=== PATIENT | male | born 1965 | race Caucasian/White ===

== ENCOUNTER 2019-03-03 22:38 | Inpatient (IN) | payer MEDICARE, MEDICAID ==
[~2019-03-03] VITALS: Ht 170.2 cm; Wt 79.0 kg
[~2019-03-03 22:38] MED LIST: FOLI1 PO; MIRT30 PO; MULT-1238; OLAN10TA6 PO; PARO20TA24 PO; THIA100T72 PO
[2019-03-03] MEDS ORDERED: HYDR-4061 PO (23:11)
[2019-03-03] MEDS ORDERED: TRIH2TAB3 PO (23:11)
[2019-03-03] MEDS ORDERED: QUET300T2 PO (23:11)
[2019-03-03] MEDS ORDERED: HALO10 PO ×2 (23:11)
[2019-03-03] MEDS ORDERED: HYDR25TA PO (23:11)
[2019-03-03 23:14] LABS: BASOPHILS % (AUTO) 0.5 % (0.0-2.0); EOSINOPHILS % (AUTO) 0.3 % (1.0-6.0); HEMATOCRIT 46.8 % (41-53); LYMPHOCYTES # (AUTO) 1.8 K/uL (1.0-4.8); MEAN CORPUSCULAR HGB CONC 34.2 G/dL (31.0-37.0)
[2019-03-03] MEDS ORDERED: IBUPROFEN 800 MG TABLET ONE (23:16)
[2019-03-03 23:17] LABS: MEAN CORPUSCULAR HEMOGLOBIN 31.1 pg (26.0-34.0); MEAN CORPUSCULAR VOLUME 91 fL (80-100); MONOCYTES # (AUTO) 1.1 K/uL (0.1-1.0); MONOCYTES % (AUTO) 6.9 % (2.0-9.0); NEUTROPHILS # (AUTO) 13.4 K/uL (1.8-7.7); NEUTROPHILS % (AUTO) 81.3 % (40.0-70.0); PLATELET COUNT (AUTO) 384 K/uL (150-450); RED BLOOD CELL COUNT(AUTO) 5.14 MIL/uL (4.50-5.90); RED CELL DISTRIBUTION WIDTH 14.9 % (11.5-14.5)
[2019-03-03 23:26] LABS: AMPHET/METH SCREEN,URINE NEGATIVE (NEGATIVE); BARBITURATE SCREEN, URINE NEGATIVE (NEGATIVE); BENZODIAZEPINES SCREEN,URINE NEGATIVE (NEGATIVE); CANNABINOID SCREEN,URINE NEGATIVE (NEGATIVE); COCAINE SCREEN,URINE NEGATIVE (NEGATIVE); METHADONE SCREEN, URINE NEGATIVE (NEGATIVE); OPIATE SCREEN,URINE POSITIVE (NEGATIVE)
[2019-03-03 23:31] LABS: ANION GAP 18 mmol/L (8-16); CARBON DIOXIDE 23 mmol/L (22-29); CHLORIDE 102 mmol/L (98-107); CREATININE 1.01 mg/dL (0.60-1.30); GLOMERULAR FILTR. RATE CALC > 60 mL/min (>60); GLUCOSE,RANDOM 106 mg/dL (70-110); POTASSIUM 3.5 mmol/L (3.5-5.1); SODIUM SERUM 143 mmol/L (136-145); UREA NITROGEN, BLOOD 14 mg/dL (7-18)
[2019-03-03 23:35] LABS: ALANINE AMINOTRANSFERASE 43 U/L (12-78); ALBUMIN 4.3 g/dL (3.4-5.0); ALKALINE PHOSPHATASE 121 U/L (46-116); ASPARTATE AMINOTRANSFERASE 153 U/L (15-37); BILIRUBIN,TOTAL 0.3 mg/dL (0.1-1.0); TOTAL PROTEIN, SERUM 7.6 g/dL (6.4-8.2)
[2019-03-03 23:37] LABS: PHENCYCLIDINE SCREEN,URINE NEGATIVE (NEGATIVE)
[2019-03-03 23:40] LABS: ACETAMINOPHEN < 2 mcg/mL (10-30)
[2019-03-03 23:44] LABS: SALICYLATE 6.4 mg/dL (2.8-20.0)
[2019-03-04] VITALS (8 sets, daily range): BP systolic 122–165; BP diastolic 65–87
[2019-03-04] MEDS ORDERED: SODIUM CHLORIDE 0.9% 1,000 ML IV ONE (02:15)
[2019-03-04] MEDS: LORazepam 2 MG TABLET PO PRN ×2 (05:32→11:05)
[2019-03-04] MEDS ORDERED: PNEUMOCOCCAL VACCINE POLYVALENT 0.5 ML VIAL [PPSV23] IM ONE (11:00)
[2019-03-04] MEDS ORDERED: LORazepam 2 MG TABLET PO PRN (12:15)
[2019-03-04] MEDS ORDERED: ALBUTEROL SULFATE HFA 90 MCG/PUFF 8 GM INHALER IH PRN (14:45)
[2019-03-04] MEDS: OLANZapine 5 MG TABLET PO SCH (16:49)
[2019-03-04] MEDS: ZOLPIDEM TARTRATE 10 MG TABLET PO PRN (21:41)
[2019-03-05 03:09] VITALS: BP 152/78
[2019-03-05] MEDS ORDERED: LORazepam 2 MG TABLET PO PRN (07:00)
[2019-03-05 07:13] VITALS: BP 155/89
[2019-03-05] MEDS: LORazepam 2 MG TABLET PO PRN (07:17)
[2019-03-05] MEDS: OLANZapine 5 MG TABLET PO SCH ×2 (08:33→16:40)
[2019-03-05] MEDS: PARoxetine HCL 20 MG TABLET PO SCH (08:33)
[2019-03-05] MEDS: HYDROCHLOROTHIAZIDE 25 MG TABLET PO SCH (08:33)
[2019-03-05] MEDS: LORazepam 2 MG TABLET PO SCH ×4 (08:33→20:28)
[2019-03-05 08:40] LABS: CHOL/HDL RATIO 2.6 (4.2-7.3); FREE T4 (FREE THYROXINE) 0.96 ng/dL (0.76-1.46); MAGNESIUM 1.9 mg/dL (1.80-2.40); THYROID STIMULATING HORMONE 1.48 uIU/mL (0.36-3.74)
[2019-03-05 11:00] VITALS: BP_SYST 121; BP_SYST 128; BP_DIAS 72
[2019-03-05] MEDS: AmLODIPine BESYLATE 2.5 MG TABLET PO SCH (11:49)
[2019-03-05 15:00] VITALS: BP 158/87
[2019-03-05 16:44] VITALS: BP 138/69
[2019-03-05] MEDS ORDERED: LACTULOSE 20 GM/30 ML SOLUTION UDCUP PO PRN (19:00)
[2019-03-05] MEDS: BISACODYL 5 MG EC TABLET PO PRN (21:29)
[2019-03-06] VITALS (7 sets, daily range): BP systolic 110–155; BP diastolic 74–94
[2019-03-06] MEDS: LORazepam 2 MG TABLET PO PRN (06:13)
[2019-03-06] MEDS: HYDROCHLOROTHIAZIDE 25 MG TABLET PO SCH (08:55)
[2019-03-06] MEDS: LORazepam 2 MG TABLET PO SCH ×4 (08:55→20:27)
[2019-03-06] MEDS: DOCUSATE SODIUM 250 MG CAPSULE PO SCH ×2 (08:55→16:17)
[2019-03-06] MEDS: PARoxetine HCL 20 MG TABLET PO SCH (08:55)
[2019-03-06] MEDS: OLANZapine 5 MG TABLET PO SCH ×2 (08:55→16:17)
[2019-03-06] MEDS: AmLODIPine BESYLATE 2.5 MG TABLET PO SCH (08:56)
[2019-03-06] MEDS: HALOPERIDOL 5 MG TABLET PO PRN (18:13)
[2019-03-07] VITALS (7 sets, daily range): BP systolic 125–166; BP diastolic 76–96
[2019-03-07] MEDS: ZOLPIDEM TARTRATE 10 MG TABLET PO PRN ×2 (00:23→21:57)
[2019-03-07] MEDS: LORazepam 2 MG TABLET PO PRN ×3 (03:04→13:47)
[2019-03-07] MEDS ORDERED: LORazepam 1 MG TABLET PO PRN (07:00)
[2019-03-07] MEDS: DOCUSATE SODIUM 250 MG CAPSULE PO SCH ×2 (08:14→16:20)
[2019-03-07] MEDS: OLANZapine 5 MG TABLET PO SCH ×2 (08:14→16:20)
[2019-03-07] MEDS: LORazepam 1 MG TABLET PO SCH ×5 (08:14→20:38)
[2019-03-07] MEDS: AmLODIPine BESYLATE 2.5 MG TABLET PO SCH (08:14)
[2019-03-07] MEDS: HYDROCHLOROTHIAZIDE 25 MG TABLET PO SCH (08:14)
[2019-03-07] MEDS: PARoxetine HCL 20 MG TABLET PO SCH (08:14)
[2019-03-07 08:23] LABS: BASOPHILS % (AUTO) 1.4 % (0.0-2.0); EOSINOPHILS % (AUTO) 3.4 % (1.0-6.0); HEMATOCRIT 40.8 % (41-53); HEMOGLOBIN 14.2 g/dL (13.5-17.5); LYMPHOCYTES # (AUTO) 1.2 K/uL (1.0-4.8); LYMPHOCYTES % (AUTO) 22.9 % (22.0-44.0); MEAN CORPUSCULAR HEMOGLOBIN 31.7 pg (26.0-34.0); MEAN CORPUSCULAR HGB CONC 34.9 G/dL (31.0-37.0); MEAN CORPUSCULAR VOLUME 91 fL (80-100); MONOCYTES # (AUTO) 0.3 K/uL (0.1-1.0); MONOCYTES % (AUTO) 5.9 % (2.0-9.0); NEUTROPHILS # (AUTO) 3.6 K/uL (1.8-7.7); NEUTROPHILS % (AUTO) 66.4 % (40.0-70.0); PLATELET COUNT (AUTO) 294 K/uL (150-450); RED CELL DISTRIBUTION WIDTH 14.5 % (11.5-14.5)
[2019-03-07 08:46] LABS: ANION GAP 10 mmol/L (8-16); CALCIUM, TOTAL 9.1 mg/dL (8.8-10.5); CARBON DIOXIDE 28 mmol/L (22-29); CHLORIDE 102 mmol/L (98-107); CREATININE 0.78 mg/dL (0.60-1.30); GLOMERULAR FILTR. RATE CALC > 60 mL/min (>60); GLUCOSE,RANDOM 113 mg/dL (70-110); POTASSIUM 3.2 mmol/L (3.5-5.1); SODIUM SERUM 140 mmol/L (136-145); UREA NITROGEN, BLOOD 11 mg/dL (7-18)
[2019-03-07] MEDS: POTASSIUM CHLORIDE 20 MEQ ER TABLET PO SCH (11:27)
[2019-03-07] MEDS: HALOPERIDOL 5 MG TABLET PO PRN (12:19)
[2019-03-07] MEDS: CloNIDine HCL 0.1 MG TABLET PO PRN (16:20)
[2019-03-08] VITALS (7 sets, daily range): BP systolic 125–165; BP diastolic 75–93
[2019-03-08] MEDS: BISACODYL 5 MG EC TABLET PO PRN (00:16)
[2019-03-08] MEDS: HALOPERIDOL 5 MG TABLET PO PRN ×2 (01:14→17:16)
[2019-03-08] MEDS: PARoxetine HCL 20 MG TABLET PO SCH (08:19)
[2019-03-08] MEDS: DOCUSATE SODIUM 250 MG CAPSULE PO SCH ×2 (08:19→17:16)
[2019-03-08] MEDS: OLANZapine 5 MG TABLET PO SCH ×2 (08:19→17:19)
[2019-03-08] MEDS: POTASSIUM CHLORIDE 20 MEQ ER TABLET PO SCH (08:19)
[2019-03-08] MEDS: LORazepam 1 MG TABLET PO PRN ×3 (08:19→18:21)
[2019-03-08] MEDS: AmLODIPine BESYLATE 2.5 MG TABLET PO SCH (08:20)
[2019-03-08 08:57] LABS: ANION GAP 11 mmol/L (8-16); CARBON DIOXIDE 27 mmol/L (22-29); CHLORIDE 102 mmol/L (98-107); CREATININE 0.73 mg/dL (0.60-1.30); GLOMERULAR FILTR. RATE CALC > 60 mL/min (>60); GLUCOSE,RANDOM 110 mg/dL (70-110); POTASSIUM 3.3 mmol/L (3.5-5.1); SODIUM SERUM 140 mmol/L (136-145); UREA NITROGEN, BLOOD 10 mg/dL (7-18)
[2019-03-08] MEDS: HYDROCHLOROTHIAZIDE 25 MG TABLET PO SCH (09:20)
[2019-03-08] MEDS: CloNIDine HCL 0.1 MG TABLET PO PRN (17:39)
[2019-03-09] MEDS: ZOLPIDEM TARTRATE 10 MG TABLET PO PRN ×2 (00:12→20:25)
[2019-03-09 00:14] VITALS: BP 133/89
[2019-03-09] MEDS: LORazepam 1 MG TABLET PO PRN (06:41)
[2019-03-09 07:55] LABS: ANION GAP 10 mmol/L (8-16); CALCIUM, TOTAL 8.9 mg/dL (8.8-10.5); CARBON DIOXIDE 28 mmol/L (22-29); CHLORIDE 102 mmol/L (98-107); CREATININE 0.79 mg/dL (0.60-1.30); GLOMERULAR FILTR. RATE CALC > 60 mL/min (>60); GLUCOSE,RANDOM 104 mg/dL (70-110); POTASSIUM 3.7 mmol/L (3.5-5.1); SODIUM SERUM 140 mmol/L (136-145); UREA NITROGEN, BLOOD 15 mg/dL (7-18)
[2019-03-09 08:00] VITALS: BP 157/84
[2019-03-09] MEDS ORDERED: POTASSIUM CHLORIDE 20 MEQ ER TABLET PO ONE (08:00)
[2019-03-09] MEDS: PARoxetine HCL 20 MG TABLET PO SCH (08:05)
[2019-03-09] MEDS: HYDROCHLOROTHIAZIDE 25 MG TABLET PO SCH (08:05)
[2019-03-09] MEDS: HALOPERIDOL 5 MG TABLET PO PRN ×2 (08:05→12:20)
[2019-03-09] MEDS: OLANZapine 5 MG TABLET PO SCH ×2 (08:06→16:21)
[2019-03-09] MEDS: DOCUSATE SODIUM 250 MG CAPSULE PO SCH (08:06)
[2019-03-09] MEDS: AmLODIPine BESYLATE 2.5 MG TABLET PO SCH (08:06)
[2019-03-09] MEDS: POTASSIUM CHLORIDE 20 MEQ ER TABLET PO SCH (08:08)
[2019-03-09] MEDS: PROPRANOLOL HCL 10 MG TABLET PO SCH ×2 (09:15→16:21)
[2019-03-09] MEDS ORDERED: PETROLATUM,WHITE 28 GM JELLY TP PRN (16:00)
[2019-03-09] MEDS ORDERED: ACETAMINOPHEN 325 MG TABLET PO PRN (16:00)
[2019-03-09] MEDS ORDERED: LOPERAMIDE HCL 2 MG CAPSULE PO PRN (16:00)
[2019-03-09] MEDS ORDERED: ONDANSETRON HCL 4 MG TABLET PO PRN (16:00)
[2019-03-09] MEDS ORDERED: MAG HYDROX/AL HYDROX/SIMETH ES 30 ML SUSPENSION UDCUP PO PRN (16:00)
[2019-03-09] MEDS ORDERED: BACITRACIN 28.4 GM OINTMENT TP PRN (16:00)
[2019-03-09] MEDS ORDERED: MAGNESIUM HYDROXIDE SUSPENSION 30 ML UDCUP PO PRN (16:00)
[2019-03-09] MEDS ORDERED: CloNIDine HCL 0.1 MG TABLET PO PRN (16:00)
[2019-03-09] MEDS ORDERED: ALBUTEROL SULFATE HFA 90 MCG/PUFF 8 GM INHALER IH PRN (16:00)
[2019-03-09] MEDS ORDERED: BENZOCAINE/MENTHOL LOZENGE MM PRN (16:00)
[2019-03-09 16:52] VITALS: BP 125/84
[2019-03-10] MEDS: HALOPERIDOL 5 MG TABLET PO PRN (00:03)
[2019-03-10] MEDS: IBUPROFEN 600 MG TABLET PO PRN (02:47)
[2019-03-10 02:52] VITALS: BP 181/104
[2019-03-10 04:00] VITALS: BP 140/86
[2019-03-10 08:12] VITALS: BP 128/90
[2019-03-10 08:43] LABS: ANION GAP 13 mmol/L (8-16); CALCIUM, TOTAL 9.4 mg/dL (8.8-10.5); CARBON DIOXIDE 27 mmol/L (22-29); CHLORIDE 100 mmol/L (98-107); CREATININE 0.93 mg/dL (0.60-1.30); GLOMERULAR FILTR. RATE CALC > 60 mL/min (>60); GLUCOSE,RANDOM 98 mg/dL (70-110); POTASSIUM 4.2 mmol/L (3.5-5.1); SODIUM SERUM 140 mmol/L (136-145); UREA NITROGEN, BLOOD 19 mg/dL (7-18)
[2019-03-10] MEDS: PROPRANOLOL HCL 10 MG TABLET PO SCH ×2 (08:47→16:15)
[2019-03-10] MEDS: OMEPRAZOLE 20 MG CAPSULE PO SCH (08:47)
[2019-03-10] MEDS: AmLODIPine BESYLATE 5 MG TABLET PO SCH (08:47)
[2019-03-10] MEDS: DOCUSATE SODIUM 100 MG CAPSULE PO SCH (08:47)
[2019-03-10] MEDS: OLANZapine 5 MG TABLET PO SCH ×2 (08:47→16:15)
[2019-03-10] MEDS: HYDROCHLOROTHIAZIDE 25 MG TABLET PO SCH (08:48)
[2019-03-10] MEDS: PARoxetine HCL 20 MG TABLET PO SCH (08:48)
[2019-03-10] MEDS: LORazepam 2 MG TABLET PO PRN (12:36)
[2019-03-10 17:10] VITALS: BP 130/86
[2019-03-10] MEDS: ZOLPIDEM TARTRATE 10 MG TABLET PO PRN (20:41)
[2019-03-11] MEDS: LORazepam 2 MG TABLET PO PRN ×3 (00:03→16:41)
[2019-03-11] MEDS: HALOPERIDOL 5 MG TABLET PO PRN (00:03)
[2019-03-11 00:15] VITALS: BP 144/88
[2019-03-11] MEDS: OLANZapine 5 MG TABLET PO SCH ×2 (08:32→16:14)
[2019-03-11] MEDS: HYDROCHLOROTHIAZIDE 25 MG TABLET PO SCH (08:32)
[2019-03-11] MEDS: OMEPRAZOLE 20 MG CAPSULE PO SCH (08:32)
[2019-03-11] MEDS: PARoxetine HCL 20 MG TABLET PO SCH (08:33)
[2019-03-11] MEDS: DOCUSATE SODIUM 100 MG CAPSULE PO SCH (08:33)
[2019-03-11] MEDS: AmLODIPine BESYLATE 5 MG TABLET PO SCH (09:07)
[2019-03-11] MEDS: PROPRANOLOL HCL 10 MG TABLET PO SCH ×2 (09:07→16:14)
[2019-03-11 09:30] VITALS: BP 140/93
[2019-03-11 16:16] VITALS: BP 140/90
[2019-03-11] MEDS: TraZODone HCL 50 MG TABLET PO SCH (20:12)
[2019-03-11] MEDS: ZOLPIDEM TARTRATE 10 MG TABLET PO PRN (23:11)
[2019-03-12 00:13] VITALS: BP 124/94
[2019-03-12] MEDS: LORazepam 2 MG TABLET PO PRN ×4 (00:13→18:48)
[2019-03-12] MEDS: HALOPERIDOL 5 MG TABLET PO PRN ×2 (00:13→13:53)
[2019-03-12 01:10] VITALS: BP 118/70
[2019-03-12] MEDS: IBUPROFEN 600 MG TABLET PO PRN (01:20)
[2019-03-12 08:21] VITALS: BP 106/63
[2019-03-12] MEDS: PROPRANOLOL HCL 10 MG TABLET PO SCH ×2 (09:00→16:42)
[2019-03-12] MEDS: OLANZapine 5 MG TABLET PO SCH ×2 (09:13→16:41)
[2019-03-12] MEDS: PARoxetine HCL 20 MG TABLET PO SCH (09:14)
[2019-03-12] MEDS: OMEPRAZOLE 20 MG CAPSULE PO SCH (09:14)
[2019-03-12] MEDS: HYDROCHLOROTHIAZIDE 25 MG TABLET PO SCH (09:14)
[2019-03-12] MEDS: DOCUSATE SODIUM 100 MG CAPSULE PO SCH (09:14)
[2019-03-12] MEDS: AmLODIPine BESYLATE 5 MG TABLET PO SCH (09:15)
[2019-03-12 09:41] LABS: ALANINE AMINOTRANSFERASE 29 U/L (12-78); ALKALINE PHOSPHATASE 94 U/L (46-116); ANION GAP 12 mmol/L (8-16); ASPARTATE AMINOTRANSFERASE 18 U/L (15-37); BILIRUBIN,TOTAL 0.5 mg/dL (0.1-1.0); CALCIUM, TOTAL 8.8 mg/dL (8.8-10.5); CARBON DIOXIDE 26 mmol/L (22-29); CHLORIDE 101 mmol/L (98-107); CREATINE KINASE, TOTAL ONLY 90 U/L (39-308); CREATININE 0.91 mg/dL (0.60-1.30); GLOMERULAR FILTR. RATE CALC > 60 mL/min (>60); GLUCOSE,RANDOM 100 mg/dL (70-110); POTASSIUM 3.4 mmol/L (3.5-5.1); SODIUM SERUM 139 mmol/L (136-145); TOTAL PROTEIN, SERUM 6.5 g/dL (6.4-8.2); UREA NITROGEN, BLOOD 18 mg/dL (7-18)
[2019-03-12 16:13] VITALS: BP 119/81
[2019-03-12] MEDS: POTASSIUM CHLORIDE 8 MEQ ER TABLET PO SCH (16:42)
[2019-03-12] MEDS: ZOLPIDEM TARTRATE 10 MG TABLET PO PRN (21:24)
[2019-03-12] MEDS: TraZODone HCL 50 MG TABLET PO SCH (21:24)
[2019-03-13 06:34] VITALS: BP 116/76
[2019-03-13 08:11] VITALS: BP 123/81
[2019-03-13] MEDS: AmLODIPine BESYLATE 5 MG TABLET PO SCH (08:32)
[2019-03-13] MEDS: HYDROCHLOROTHIAZIDE 25 MG TABLET PO SCH (08:32)
[2019-03-13] MEDS: HALOPERIDOL 5 MG TABLET PO PRN ×2 (08:32→14:00)
[2019-03-13] MEDS: OLANZapine 5 MG TABLET PO SCH ×2 (08:32→17:16)
[2019-03-13] MEDS: LORazepam 2 MG TABLET PO PRN ×2 (08:32→14:01)
[2019-03-13] MEDS: PARoxetine HCL 20 MG TABLET PO SCH (08:32)
[2019-03-13] MEDS: DOCUSATE SODIUM 100 MG CAPSULE PO SCH (08:32)
[2019-03-13] MEDS: OMEPRAZOLE 20 MG CAPSULE PO SCH (08:32)
[2019-03-13] MEDS: POTASSIUM CHLORIDE 8 MEQ ER TABLET PO SCH (08:33)
[2019-03-13] MEDS: PROPRANOLOL HCL 10 MG TABLET PO SCH ×2 (09:26→17:16)
[2019-03-13 16:21] VITALS: BP 116/81
[2019-03-13] MEDS: TraZODone HCL 50 MG TABLET PO SCH (20:08)
[2019-03-13] MEDS: ZOLPIDEM TARTRATE 10 MG TABLET PO PRN (22:10)
[2019-03-14] VITALS: BP 119/88
[2019-03-14] MEDS: HALOPERIDOL 5 MG TABLET PO PRN ×2 (00:23→17:27)
[2019-03-14] MEDS: LORazepam 2 MG TABLET PO PRN ×3 (00:23→16:35)
[2019-03-14 08:08] VITALS: BP 117/74
[2019-03-14] MEDS: OLANZapine 5 MG TABLET PO SCH ×2 (08:22→16:35)
[2019-03-14] MEDS: PARoxetine HCL 20 MG TABLET PO SCH (08:22)
[2019-03-14] MEDS: DOCUSATE SODIUM 100 MG CAPSULE PO SCH (08:22)
[2019-03-14] MEDS: HYDROCHLOROTHIAZIDE 25 MG TABLET PO SCH (08:22)
[2019-03-14] MEDS: OMEPRAZOLE 20 MG CAPSULE PO SCH (08:22)
[2019-03-14] MEDS: POTASSIUM CHLORIDE 8 MEQ ER TABLET PO SCH (08:23)
[2019-03-14] MEDS: AmLODIPine BESYLATE 5 MG TABLET PO SCH (08:23)
[2019-03-14] MEDS: PROPRANOLOL HCL 10 MG TABLET PO SCH ×2 (08:23→16:35)
[2019-03-14 08:57] LABS: ANION GAP 9 mmol/L (8-16); CARBON DIOXIDE 29 mmol/L (22-29); CHLORIDE 98 mmol/L (98-107); CREATININE 0.76 mg/dL (0.60-1.30); GLOMERULAR FILTR. RATE CALC > 60 mL/min (>60); GLUCOSE,RANDOM 126 mg/dL (70-110); POTASSIUM 3.2 mmol/L (3.5-5.1); SODIUM SERUM 136 mmol/L (136-145); UREA NITROGEN, BLOOD 20 mg/dL (7-18)
[2019-03-14 16:31] VITALS: BP 124/94
[2019-03-14] MEDS ORDERED: POTASSIUM CHLORIDE 20 MEQ ER TABLET PO ONE ×2 (17:00→20:00)
[2019-03-14] MEDS ORDERED: DiphenhydrAMINE HCL 50 MG/ML VIAL IM ONE (18:15)
[2019-03-14 18:25] VITALS: BP 120/70
[2019-03-14 19:31] VITALS: BP 118/68
[2019-03-14] MEDS: TraZODone HCL 50 MG TABLET PO SCH (21:17)
[2019-03-15 05:39] VITALS: BP 115/72
[2019-03-15] MEDS: DOCUSATE SODIUM 100 MG CAPSULE PO SCH (07:59)
[2019-03-15] MEDS: HYDROCHLOROTHIAZIDE 25 MG TABLET PO SCH (08:00)
[2019-03-15] MEDS: LORazepam 2 MG TABLET PO PRN ×3 (08:00→18:23)
[2019-03-15] MEDS: OLANZapine 5 MG TABLET PO SCH (08:00)
[2019-03-15] MEDS: PARoxetine HCL 20 MG TABLET PO SCH (08:00)
[2019-03-15] MEDS: OMEPRAZOLE 20 MG CAPSULE PO SCH (08:00)
[2019-03-15] MEDS: HALOPERIDOL 5 MG TABLET PO PRN ×3 (08:01→18:24)
[2019-03-15] MEDS: POTASSIUM CHLORIDE 8 MEQ ER TABLET PO SCH (08:02)
[2019-03-15 08:20] VITALS: BP 133/71
[2019-03-15] MEDS: AmLODIPine BESYLATE 5 MG TABLET PO SCH (08:22)
[2019-03-15] MEDS: PROPRANOLOL HCL 10 MG TABLET PO SCH ×2 (08:22→16:13)
[2019-03-15 16:09] VITALS: BP 118/77
[2019-03-15] MEDS: OLANZapine 10 MG TABLET PO SCH (16:13)
[2019-03-15] MEDS: TraZODone HCL 50 MG TABLET PO SCH (20:10)
[2019-03-16 00:35] VITALS: BP 120/81
[2019-03-16] MEDS: ZOLPIDEM TARTRATE 10 MG TABLET PO PRN (00:35)
[2019-03-16] MEDS: LORazepam 2 MG TABLET PO PRN (00:35)
[2019-03-16] MEDS: HALOPERIDOL 5 MG TABLET PO PRN (04:55)
[2019-03-16 08:26] VITALS: BP 163/88
[2019-03-16] MEDS: OMEPRAZOLE 20 MG CAPSULE PO SCH (08:37)
[2019-03-16] MEDS: DOCUSATE SODIUM 100 MG CAPSULE PO SCH (08:37)
[2019-03-16] MEDS: AmLODIPine BESYLATE 5 MG TABLET PO SCH (08:41)
[2019-03-16] MEDS: PROPRANOLOL HCL 10 MG TABLET PO SCH (08:45)
[2019-03-16] MEDS ORDERED: HYDROCHLOROTHIAZIDE 25 MG TABLET PO SCH (09:00)
[2019-03-16] MEDS: POTASSIUM CHLORIDE 8 MEQ ER TABLET PO SCH (09:03)
[2019-03-16] MEDS: PARoxetine HCL 20 MG TABLET PO SCH (09:04)
[2019-03-16] MEDS: OLANZapine 10 MG TABLET PO SCH (09:04)
[2019-03-16 10:23] VITALS: BP 116/84
[2019-03-16] MEDS ORDERED: OLAN10TA3 PO (11:22)
[2019-03-16] MEDS ORDERED: PARO20TA24 PO (11:23)
[2019-03-16] MEDS ORDERED: TRAZ-219 PO (11:24)
[2019-03-16] MEDS ORDERED: AMLO-511 PO (11:25)
[2019-03-16] MEDS ORDERED: HYDR25TA PO (11:27)
[2019-03-16] MEDS ORDERED: PROP10TA72 PO (11:28)
[2019-03-16] MEDS ORDERED: POTA8CAP10 PO (11:31)
== END 2019-03-16 14:30 | disposition home or self-care (01) | DRG 885 ==
LOC: EMS 22:40 → B2S 03-04 04:30
PROVIDERS: ADMIT Psychiatry & Neurology Child & Adolescent Psychiatry; ATTEND Psychiatry & Neurology Child & Adolescent Psychiatry
DX: F25.1 Schizoaffective disorder, depressive type (principal); F31.9 Bipolar disorder, unspecified; I10 Essential (primary) hypertension; J43.9 Emphysema, unspecified; K59.00 Constipation, unspecified; F12.10 Cannabis abuse, uncomplicated; F15.90 Other stimulant use, unspecified, uncomplicated; B19.20 Unspecified viral hepatitis C without hepatic coma; D72.829 Elevated white blood cell count, unspecified; E87.6 Hypokalemia; F10.20 Alcohol dependence, uncomplicated; Z59.0 Homelessness; Z91.5 Personal history of self-harm; Z79.899 Other long term (current) drug therapy
CPT/HCPCS: 82105; 83036; 83735; 84439; 84443; 93005; G0480; G0481; J1200; J3230; J7030

== ENCOUNTER 2019-12-22 11:06 | Inpatient (IN) | payer MEDICARE, MEDICAID ==
[~2019-12-22] VITALS: Ht 170.2 cm; Wt 72.1 kg
[~2019-12-22 11:06] MED LIST changes: +AMLO5TAB9 PO; -FOLI1 PO; +HYDR25TA PO; -MIRT30 PO; -MULT-1238; +OLAN10TA3 PO; -OLAN10TA6 PO; +POTA8CAP20 PO; +PROP10TA72 PO; -THIA100T72 PO; +TRAZ-252 PO
[2019-12-22 13:43] VITALS: BP 108/70
[2019-12-22] MEDS ORDERED: HALOPERIDOL 5 MG TABLET PO PRN (14:15)
[2019-12-22] MEDS ORDERED: ZOLPIDEM TARTRATE 10 MG TABLET PO PRN (14:15)
[2019-12-22] MEDS ORDERED: LORazepam 2 MG TABLET PO PRN (14:15)
[2019-12-22 16:23] VITALS: BP 123/61
[2019-12-22] MEDS ORDERED: INFLUENZA VIRUS VACCINE QVS 2019-20 (3YR+)/PF 60 MCG/0.5 ML SYRINGE IM ONE (17:00)
[2019-12-22] MEDS ORDERED: PNEUMOCOCCAL VACCINE POLYVALENT 0.5 ML VIAL [PPSV23] IM ONE (17:00)
[2019-12-22 22:54] VITALS: BP 149/85
[2019-12-22] MEDS: PROPRANOLOL HCL 10 MG TABLET PO SCH (22:56)
[2019-12-23 06:52] VITALS: BP 159/82
[2019-12-23] MEDS ORDERED: CloNIDine HCL 0.1 MG TABLET PO PRN (07:15)
[2019-12-23] MEDS ORDERED: GuaiFENesin/D-METHORPHAN [SUGAR-FREE] 200-20MG/10 ML SYRUP UDCUP PO PRN (07:15)
[2019-12-23] MEDS ORDERED: ALBUTEROL SULFATE HFA 90 MCG/PUFF 8 GM INHALER IH PRN (07:15)
[2019-12-23] MEDS ORDERED: ACETAMINOPHEN 325 MG TABLET PO PRN (07:15)
[2019-12-23] MEDS ORDERED: ONDANSETRON HCL 4 MG TABLET PO PRN (07:15)
[2019-12-23] MEDS ORDERED: IBUPROFEN 400 MG TABLET PO PRN (07:15)
[2019-12-23] MEDS ORDERED: LOPERAMIDE HCL 2 MG CAPSULE PO PRN (07:15)
[2019-12-23] MEDS ORDERED: PETROLATUM,WHITE 28 GM JELLY TP PRN (07:15)
[2019-12-23] MEDS ORDERED: MAGNESIUM HYDROXIDE SUSPENSION 30 ML UDCUP PO PRN (07:15)
[2019-12-23] MEDS ORDERED: MAG HYDROX/AL HYDROX/SIMETH ES 30 ML SUSPENSION UDCUP PO PRN (07:15)
[2019-12-23] MEDS ORDERED: DOCUSATE SODIUM 100 MG CAPSULE PO PRN (07:15)
[2019-12-23 08:13] LABS: HEMOGLOBIN A1C 5.3 % (4.5-6.2)
[2019-12-23 08:15] LABS: BASOPHILS % (AUTO) 1.3 % (0.0-2.0); HEMATOCRIT 39.8 % (41-53); HEMOGLOBIN 13.7 g/dL (13.5-17.5); LYMPHOCYTES # (AUTO) 1.6 K/uL (1.0-4.8); MEAN CORPUSCULAR HEMOGLOBIN 30.9 pg (26.0-34.0); MEAN CORPUSCULAR HGB CONC 34.3 G/dL (31.0-37.0); MEAN CORPUSCULAR VOLUME 90 fL (80-100); MONOCYTES # (AUTO) 0.5 K/uL (0.1-1.0); MONOCYTES % (AUTO) 7.6 % (2.0-9.0); NEUTROPHILS # (AUTO) 3.7 K/uL (1.8-7.7); NEUTROPHILS % (AUTO) 59.1 % (40.0-70.0); PLATELET COUNT (AUTO) 251 K/uL (150-450); RED BLOOD CELL COUNT(AUTO) 4.42 MIL/uL (4.50-5.90); RED CELL DISTRIBUTION WIDTH 15.7 % (11.5-14.5)
[2019-12-23 08:18] VITALS: BP 141/72
[2019-12-23 08:34] LABS: ALANINE AMINOTRANSFERASE 13 U/L (12-78); ALBUMIN 3.4 g/dL (3.4-5.0); ALKALINE PHOSPHATASE 88 U/L (46-116); ANION GAP 8 mmol/L (8-16); ASPARTATE AMINOTRANSFERASE < 5 U/L (15-37); BILIRUBIN,TOTAL 0.2 mg/dL (0.1-1.0); CALCIUM, TOTAL 8.3 mg/dL (8.8-10.5); CARBON DIOXIDE 26 mmol/L (22-29); CHLORIDE 107 mmol/L (98-107); CHOL/HDL RATIO 4.6 (4.2-7.3); CHOLESTEROL 148 mg/dL (131-200); CREATININE 0.93 mg/dL (0.60-1.30); FREE T4 (FREE THYROXINE) 0.75 ng/dL (0.76-1.46); GLOMERULAR FILTR. RATE CALC > 60 mL/min (>60); GLUCOSE,RANDOM 95 mg/dL (70-110); HDL CHOLESTEROL 32 mg/dL (40-60); LDL CHOL (CALC.) 97 mg/dL (0-130); POTASSIUM 4.3 mmol/L (3.5-5.1); SODIUM SERUM 141 mmol/L (136-145); THYROID STIMULATING HORMONE 2.41 uIU/mL (0.36-3.74); TOTAL PROTEIN, SERUM 5.9 g/dL (6.4-8.2); TRIGLYCERIDES 97 mg/dL (15-150); UREA NITROGEN, BLOOD 15 mg/dL (7-18)
[2019-12-23] MEDS: PROPRANOLOL HCL 10 MG TABLET PO SCH ×2 (09:00→16:30)
[2019-12-23] MEDS: POTASSIUM CHLORIDE 8 MEQ ER TABLET PO SCH (09:00)
[2019-12-23] MEDS: AmLODIPine BESYLATE 5 MG TABLET PO SCH (09:10)
[2019-12-23] MEDS: HYDROCHLOROTHIAZIDE 25 MG TABLET PO SCH (09:10)
[2019-12-23] MEDS: TraZODone HCL 50 MG TABLET PO SCH (11:52)
[2019-12-23] MEDS: PARoxetine HCL 20 MG TABLET PO SCH (11:52)
[2019-12-23] MEDS: NICOTINE 14 MG/24 HOUR PATCH TD PRN (15:53)
[2019-12-23 16:10] VITALS: BP 133/74
[2019-12-23] MEDS: OLANZapine 10 MG TABLET PO SCH (16:30)
[2019-12-24 08:22] VITALS: BP 140/74
[2019-12-24] MEDS: AmLODIPine BESYLATE 5 MG TABLET PO SCH (09:07)
[2019-12-24] MEDS: PROPRANOLOL HCL 10 MG TABLET PO SCH ×2 (09:08→16:43)
[2019-12-24] MEDS: OLANZapine 10 MG TABLET PO SCH ×2 (09:08→16:43)
[2019-12-24] MEDS: TraZODone HCL 50 MG TABLET PO SCH (09:08)
[2019-12-24] MEDS: PARoxetine HCL 20 MG TABLET PO SCH (09:08)
[2019-12-24] MEDS: HYDROCHLOROTHIAZIDE 25 MG TABLET PO SCH (09:08)
[2019-12-24] MEDS: POTASSIUM CHLORIDE 8 MEQ ER TABLET PO SCH (09:09)
[2019-12-24 16:14] VITALS: BP 136/71
[2019-12-25 00:41] VITALS: BP 140/72
[2019-12-25 08:13] VITALS: BP 140/87
[2019-12-25] MEDS: HYDROCHLOROTHIAZIDE 25 MG TABLET PO SCH (09:43)
[2019-12-25] MEDS: PARoxetine HCL 20 MG TABLET PO SCH (09:43)
[2019-12-25] MEDS: AmLODIPine BESYLATE 5 MG TABLET PO SCH (09:44)
[2019-12-25] MEDS: OLANZapine 10 MG TABLET PO SCH ×2 (09:44→17:22)
[2019-12-25] MEDS: PROPRANOLOL HCL 10 MG TABLET PO SCH ×2 (09:44→17:22)
[2019-12-25] MEDS: TraZODone HCL 50 MG TABLET PO SCH (09:44)
[2019-12-25] MEDS: POTASSIUM CHLORIDE 8 MEQ ER TABLET PO SCH (09:45)
[2019-12-25 16:38] VITALS: BP 123/72
[2019-12-26 08:58] VITALS: BP 135/85
[2019-12-26] MEDS: PROPRANOLOL HCL 10 MG TABLET PO SCH ×2 (09:06→16:39)
[2019-12-26] MEDS: OLANZapine 10 MG TABLET PO SCH ×2 (09:06→16:39)
[2019-12-26] MEDS: TraZODone HCL 50 MG TABLET PO SCH (09:06)
[2019-12-26] MEDS: HYDROCHLOROTHIAZIDE 25 MG TABLET PO SCH (09:06)
[2019-12-26] MEDS: AmLODIPine BESYLATE 5 MG TABLET PO SCH (09:06)
[2019-12-26] MEDS: POTASSIUM CHLORIDE 8 MEQ ER TABLET PO SCH (09:06)
[2019-12-26] MEDS: PARoxetine HCL 20 MG TABLET PO SCH (09:06)
[2019-12-26 16:18] VITALS: BP 114/72
[2019-12-27 01:47] VITALS: BP 148/80
[2019-12-27 08:15] VITALS: BP 116/78
[2019-12-27] MEDS: OLANZapine 10 MG TABLET PO SCH ×2 (09:04→16:32)
[2019-12-27] MEDS: PROPRANOLOL HCL 10 MG TABLET PO SCH ×2 (09:04→16:32)
[2019-12-27] MEDS: TraZODone HCL 50 MG TABLET PO SCH (09:04)
[2019-12-27] MEDS: HYDROCHLOROTHIAZIDE 25 MG TABLET PO SCH (09:04)
[2019-12-27] MEDS: AmLODIPine BESYLATE 5 MG TABLET PO SCH (09:04)
[2019-12-27] MEDS: PARoxetine HCL 20 MG TABLET PO SCH (09:04)
[2019-12-27] MEDS: POTASSIUM CHLORIDE 8 MEQ ER TABLET PO SCH (09:04)
[2019-12-27 16:12] VITALS: BP 118/66
[2019-12-28 06:02] VITALS: BP 115/70
[2019-12-28] MEDS: PROPRANOLOL HCL 10 MG TABLET PO SCH ×2 (08:37→16:40)
[2019-12-28] MEDS: HYDROCHLOROTHIAZIDE 25 MG TABLET PO SCH (08:37)
[2019-12-28] MEDS: PARoxetine HCL 20 MG TABLET PO SCH (08:37)
[2019-12-28] MEDS: POTASSIUM CHLORIDE 8 MEQ ER TABLET PO SCH (08:37)
[2019-12-28] MEDS: OLANZapine 10 MG TABLET PO SCH ×2 (08:37→16:41)
[2019-12-28] MEDS: AmLODIPine BESYLATE 5 MG TABLET PO SCH (08:37)
[2019-12-28] MEDS: TraZODone HCL 50 MG TABLET PO SCH (08:37)
[2019-12-28 08:42] VITALS: BP 147/76
[2019-12-28 16:08] VITALS: BP 130/76
[2019-12-29 01:23] VITALS: BP 140/73
[2019-12-29 08:10] VITALS: BP 113/71
[2019-12-29] MEDS: PARoxetine HCL 20 MG TABLET PO SCH (09:13)
[2019-12-29] MEDS: OLANZapine 10 MG TABLET PO SCH ×2 (09:13→16:31)
[2019-12-29] MEDS: AmLODIPine BESYLATE 5 MG TABLET PO SCH (09:14)
[2019-12-29] MEDS: PROPRANOLOL HCL 10 MG TABLET PO SCH ×2 (09:14→16:31)
[2019-12-29] MEDS: HYDROCHLOROTHIAZIDE 25 MG TABLET PO SCH (09:14)
[2019-12-29] MEDS: TraZODone HCL 50 MG TABLET PO SCH (09:14)
[2019-12-29] MEDS: POTASSIUM CHLORIDE 8 MEQ ER TABLET PO SCH (09:15)
[2019-12-29 16:08] VITALS: BP 118/75
[2019-12-30 06:17] VITALS: BP 140/84
[2019-12-30] MEDS: POTASSIUM CHLORIDE 8 MEQ ER TABLET PO SCH (08:13)
[2019-12-30] MEDS: AmLODIPine BESYLATE 5 MG TABLET PO SCH (08:13)
[2019-12-30] MEDS: OLANZapine 10 MG TABLET PO SCH ×2 (08:13→16:34)
[2019-12-30] MEDS: TraZODone HCL 50 MG TABLET PO SCH (08:13)
[2019-12-30 08:14] VITALS: BP 111/85
[2019-12-30] MEDS: PARoxetine HCL 20 MG TABLET PO SCH (08:14)
[2019-12-30] MEDS: HYDROCHLOROTHIAZIDE 25 MG TABLET PO SCH (08:16)
[2019-12-30] MEDS: PROPRANOLOL HCL 10 MG TABLET PO SCH ×2 (08:16→16:34)
[2019-12-30] MEDS: NICOTINE 14 MG/24 HOUR PATCH TD PRN (14:32)
[2019-12-30 16:07] VITALS: BP 110/67
[2019-12-31 00:11] VITALS: BP 129/68
[2019-12-31 08:22] VITALS: BP 137/81
[2019-12-31] MEDS: AmLODIPine BESYLATE 5 MG TABLET PO SCH (08:31)
[2019-12-31] MEDS: TraZODone HCL 50 MG TABLET PO SCH (08:31)
[2019-12-31] MEDS: OLANZapine 10 MG TABLET PO SCH ×2 (08:31→16:47)
[2019-12-31] MEDS: PROPRANOLOL HCL 10 MG TABLET PO SCH ×2 (08:31→16:48)
[2019-12-31] MEDS: PARoxetine HCL 20 MG TABLET PO SCH (08:31)
[2019-12-31] MEDS: POTASSIUM CHLORIDE 8 MEQ ER TABLET PO SCH (08:31)
[2019-12-31] MEDS: HYDROCHLOROTHIAZIDE 25 MG TABLET PO SCH (08:31)
[2019-12-31 16:07] VITALS: BP 114/68
[2020-01-01 00:23] VITALS: BP 112/64
[2020-01-01 08:30] VITALS: BP 138/74
[2020-01-01] MEDS: HYDROCHLOROTHIAZIDE 25 MG TABLET PO SCH (08:39)
[2020-01-01] MEDS: PROPRANOLOL HCL 10 MG TABLET PO SCH (08:40)
[2020-01-01] MEDS: AmLODIPine BESYLATE 5 MG TABLET PO SCH (08:40)
[2020-01-01] MEDS: PARoxetine HCL 20 MG TABLET PO SCH (08:40)
[2020-01-01] MEDS: POTASSIUM CHLORIDE 8 MEQ ER TABLET PO SCH (08:40)
[2020-01-01] MEDS: OLANZapine 10 MG TABLET PO SCH (08:40)
[2020-01-01] MEDS: TraZODone HCL 50 MG TABLET PO SCH (08:40)
[2020-01-01 16:11] VITALS: BP 123/81
== END 2020-01-01 16:00 | disposition home or self-care (01) | DRG 885 ==
LOC: B2S 15:08 → B2X 21:58
PROVIDERS: ADMIT Psychiatry & Neurology Child & Adolescent Psychiatry; ATTEND Psychiatry & Neurology Child & Adolescent Psychiatry
DX: F25.0 Schizoaffective disorder, bipolar type (principal); B19.20 Unspecified viral hepatitis C without hepatic coma; R45.851 Suicidal ideations; I10 Essential (primary) hypertension; J44.9 Chronic obstructive pulmonary disease, unspecified; D72.829 Elevated white blood cell count, unspecified; F10.10 Alcohol abuse, uncomplicated; Y90.9 Presence of alcohol in blood, level not specified; F19.10 Other psychoactive substance abuse, uncomplicated; F31.9 Bipolar disorder, unspecified; Z71.41 Alcohol abuse counseling and surveillance of alcoholic; Z59.0 Homelessness; Z28.21 Immunization not carried out because of patient refusal
CPT/HCPCS: 83036; 84439; 84443

== ENCOUNTER 2020-12-20 12:39 | Inpatient (IN) | payer MEDICARE, MEDICAID ==
[~2020-12-20] VITALS: Ht 170.2 cm; Wt 77.3 kg
[~2020-12-20 12:39] MED LIST changes: +AMLO-257 PO; -AMLO5TAB9 PO; +PARO-38 PO; -PARO20TA24 PO
[2020-12-20] MEDS ORDERED: ZOLPIDEM TARTRATE 10 MG TABLET PO PRN (16:30)
[2020-12-20] MEDS ORDERED: HALOPERIDOL 5 MG TABLET PO PRN (16:30)
[2020-12-20] MEDS ORDERED: LORazepam 2 MG TABLET PO PRN (16:30)
[2020-12-20] MEDS ORDERED: PNEUMOCOCCAL VACCINE POLYVALENT 0.5 ML VIAL [PPSV23] IM ONE (17:00)
[2020-12-20] MEDS ORDERED: INFLUENZA VIRUS VACCINE QVS 2020-21 (6MO+)/PF 60 MCG/0.5 ML SYRINGE IM ONE (17:00)
[2020-12-20] MEDS ORDERED: CARVEDILOL 3.125 MG TABLET PO SCH (17:30)
[2020-12-20] MEDS ORDERED: ALBUTEROL SULFATE HFA 90 MCG/PUFF 8 GM INHALER IH PRN (17:30)
[2020-12-20 17:40] VITALS: BP 184/100
[2020-12-20 19:50] VITALS: BP 152/76
[2020-12-21 07:12] VITALS: BP 174/88
[2020-12-21] MEDS ORDERED: LOPERAMIDE HCL 2 MG CAPSULE PO PRN (08:15)
[2020-12-21] MEDS ORDERED: PETROLATUM,WHITE 28 GM JELLY TP PRN (08:15)
[2020-12-21] MEDS ORDERED: ONDANSETRON HCL 4 MG TABLET PO PRN (08:15)
[2020-12-21] MEDS ORDERED: MAG HYDROX/AL HYDROX/SIMETH ES 30 ML SUSPENSION UDCUP PO PRN (08:15)
[2020-12-21] MEDS ORDERED: ACETAMINOPHEN 325 MG TABLET PO PRN (08:15)
[2020-12-21] MEDS ORDERED: ALBUTEROL SULFATE HFA 90 MCG/PUFF 8 GM INHALER IH PRN (08:15)
[2020-12-21] MEDS ORDERED: GuaiFENesin/D-METHORPHAN [SUGAR-FREE] 200-20MG/10 ML SYRUP UDCUP PO PRN (08:15)
[2020-12-21] MEDS ORDERED: MAGNESIUM HYDROXIDE SUSPENSION 30 ML UDCUP PO PRN (08:15)
[2020-12-21] MEDS ORDERED: DOCUSATE SODIUM 100 MG CAPSULE PO PRN (08:15)
[2020-12-21] MEDS ORDERED: IBUPROFEN 400 MG TABLET PO PRN (08:15)
[2020-12-21] MEDS ORDERED: NICOTINE 14 MG/24 HOUR PATCH TD PRN (08:15)
[2020-12-21 08:25] VITALS: BP 173/80
[2020-12-21] MEDS: NICOTINE 14 MG/24 HOUR PATCH TD SCH (08:52)
[2020-12-21] MEDS: CloNIDine HCL 0.1 MG TABLET PO PRN (08:52)
[2020-12-21] MEDS ORDERED: CARVEDILOL 6.25 MG TABLET PO SCH (09:00)
[2020-12-21] MEDS ORDERED: CARVEDILOL 3.125 MG TABLET PO SCH (09:00)
[2020-12-21] MEDS: CARVEDILOL 6.25 MG TABLET PO SCH ×2 (12:11→18:03)
[2020-12-21] MEDS: PARoxetine HCL 20 MG TABLET PO SCH (12:14)
[2020-12-21 17:03] VITALS: BP 154/91
[2020-12-21] MEDS: OLANZapine 5 MG TABLET PO SCH (20:36)
[2020-12-21] MEDS: TraZODone HCL 50 MG TABLET PO SCH (20:36)
[2020-12-22 05:57] VITALS: BP 171/83
[2020-12-22] MEDS: CloNIDine HCL 0.1 MG TABLET PO PRN (06:07)
[2020-12-22 07:00] VITALS: BP 176/79
[2020-12-22] MEDS: NICOTINE 14 MG/24 HOUR PATCH TD SCH (08:48)
[2020-12-22] MEDS: CARVEDILOL 6.25 MG TABLET PO SCH ×2 (08:48→16:33)
[2020-12-22] MEDS: PARoxetine HCL 20 MG TABLET PO SCH (08:48)
[2020-12-22] MEDS: OLANZapine 5 MG TABLET PO SCH ×2 (08:48→20:33)
[2020-12-22 08:59] LABS: EOSINOPHILS % (AUTO) 5.3 % (1.0-6.0); HEMATOCRIT 39.8 % (41-53); HEMOGLOBIN 13.8 g/dL (13.5-17.5); LYMPHOCYTES # (AUTO) 1.5 K/uL (1.0-4.8); LYMPHOCYTES % (AUTO) 26.4 % (22.0-44.0); MEAN CORPUSCULAR HEMOGLOBIN 30.6 pg (26.0-34.0); MEAN CORPUSCULAR HGB CONC 34.7 G/dL (31.0-37.0); MEAN CORPUSCULAR VOLUME 88 fL (80-100); MONOCYTES # (AUTO) 0.3 K/uL (0.1-1.0); MONOCYTES % (AUTO) 5.9 % (2.0-9.0); NEUTROPHILS # (AUTO) 3.5 K/uL (1.8-7.7); NEUTROPHILS % (AUTO) 60.4 % (40.0-70.0); PLATELET COUNT (AUTO) 227 K/uL (150-450); RED BLOOD CELL COUNT(AUTO) 4.52 MIL/uL (4.50-5.90); RED CELL DISTRIBUTION WIDTH 14.6 % (11.5-14.5)
[2020-12-22 09:07] LABS: HEMOGLOBIN A1C 5.4 % (3.8-5.6)
[2020-12-22 10:00] LABS: ALANINE AMINOTRANSFERASE 16 U/L (12-78); ALBUMIN 3.5 g/dL (3.4-5.0); ALKALINE PHOSPHATASE 75 U/L (46-116); ANION GAP 5 mmol/L (8-16); ASPARTATE AMINOTRANSFERASE 8 U/L (15-37); BILIRUBIN,TOTAL 0.3 mg/dL (0.1-1.0); CALCIUM, TOTAL 8.4 mg/dL (8.8-10.5); CARBON DIOXIDE 27 mmol/L (22-29); CHLORIDE 105 mmol/L (98-107); CHOL/HDL RATIO 3.3 (4.2-7.3); CHOLESTEROL 121 mg/dL (131-200); CREATININE 0.91 mg/dL (0.60-1.30); FREE T4 (FREE THYROXINE) 0.86 ng/dL (0.76-1.46); GLOMERULAR FILTR. RATE CALC > 60 mL/min (>60); GLUCOSE,RANDOM 91 mg/dL (70-110); HDL CHOLESTEROL 37 mg/dL (40-60); LDL CHOL (CALC.) 66 mg/dL (0-130); POTASSIUM 4.4 mmol/L (3.5-5.1); SODIUM SERUM 137 mmol/L (136-145); THYROID STIMULATING HORMONE 1.05 uIU/mL (0.36-3.74); TOTAL PROTEIN, SERUM 6.3 g/dL (6.4-8.2); TRIGLYCERIDES 92 mg/dL (15-150); UREA NITROGEN, BLOOD 17 mg/dL (7-18)
[2020-12-22 10:21] VITALS: BP 135/68
[2020-12-22 16:41] VITALS: BP 154/71
[2020-12-22 18:57] VITALS: BP 133/63
[2020-12-22] MEDS: TraZODone HCL 50 MG TABLET PO SCH (20:33)
[2020-12-23 01:22] VITALS: BP 147/72
[2020-12-23] MEDS: CARVEDILOL 6.25 MG TABLET PO SCH ×2 (10:04→17:14)
[2020-12-23] MEDS: OLANZapine 5 MG TABLET PO SCH ×2 (10:04→21:01)
[2020-12-23] MEDS: PARoxetine HCL 20 MG TABLET PO SCH (10:04)
[2020-12-23] MEDS: NICOTINE 14 MG/24 HOUR PATCH TD SCH (10:17)
[2020-12-23 10:21] VITALS: BP 151/84
[2020-12-23 16:19] VITALS: BP 160/84
[2020-12-23] MEDS: TraZODone HCL 50 MG TABLET PO SCH (21:01)
[2020-12-24 03:48] VITALS: BP 119/75
[2020-12-24 08:58] VITALS: BP 147/73
[2020-12-24] MEDS: NICOTINE 14 MG/24 HOUR PATCH TD SCH (09:00)
[2020-12-24] MEDS: AmLODIPine BESYLATE 5 MG TABLET PO SCH (09:37)
[2020-12-24] MEDS: CARVEDILOL 6.25 MG TABLET PO SCH ×2 (09:37→16:34)
[2020-12-24] MEDS: PARoxetine HCL 20 MG TABLET PO SCH (10:03)
[2020-12-24] MEDS: OLANZapine 10 MG TABLET PO SCH ×2 (10:03→20:43)
[2020-12-24 17:39] VITALS: BP 158/72
[2020-12-24] MEDS: TraZODone HCL 50 MG TABLET PO SCH (20:43)
[2020-12-25 04:24] VITALS: BP 132/76
[2020-12-25 08:00] VITALS: BP 146/68
[2020-12-25 08:38] LABS: COVID AG,FIA SOURCE NASAL SWAB
[2020-12-25] MEDS: OLANZapine 10 MG TABLET PO SCH ×2 (09:59→20:36)
[2020-12-25] MEDS: NICOTINE 14 MG/24 HOUR PATCH TD SCH (09:59)
[2020-12-25] MEDS: PARoxetine HCL 20 MG TABLET PO SCH (09:59)
[2020-12-25] MEDS: CARVEDILOL 6.25 MG TABLET PO SCH ×2 (09:59→16:36)
[2020-12-25] MEDS: AmLODIPine BESYLATE 5 MG TABLET PO SCH (09:59)
[2020-12-25 16:41] VITALS: BP 168/82
[2020-12-25 17:56] VITALS: BP 130/69
[2020-12-25] MEDS: TraZODone HCL 50 MG TABLET PO SCH (20:36)
[2020-12-26 06:45] VITALS: BP 135/78
[2020-12-26 08:51] VITALS: BP 147/77
[2020-12-26] MEDS: NICOTINE 14 MG/24 HOUR PATCH TD SCH (10:12)
[2020-12-26] MEDS: CARVEDILOL 6.25 MG TABLET PO SCH ×2 (10:12→16:31)
[2020-12-26] MEDS: AmLODIPine BESYLATE 5 MG TABLET PO SCH (10:13)
[2020-12-26] MEDS: PARoxetine HCL 20 MG TABLET PO SCH (10:13)
[2020-12-26] MEDS: OLANZapine 10 MG TABLET PO SCH ×2 (10:13→20:35)
[2020-12-26 16:34] VITALS: BP 139/76
[2020-12-26] MEDS: TraZODone HCL 50 MG TABLET PO SCH (20:35)
[2020-12-27 09:40] VITALS: BP 168/72
[2020-12-27] MEDS: OLANZapine 10 MG TABLET PO SCH ×2 (09:40→20:31)
[2020-12-27] MEDS: AmLODIPine BESYLATE 5 MG TABLET PO SCH (09:40)
[2020-12-27] MEDS: CARVEDILOL 6.25 MG TABLET PO SCH ×2 (09:40→16:31)
[2020-12-27] MEDS: PARoxetine HCL 20 MG TABLET PO SCH (09:40)
[2020-12-27] MEDS: NICOTINE 14 MG/24 HOUR PATCH TD SCH (09:40)
[2020-12-27 16:54] VITALS: BP 131/74
[2020-12-27] MEDS: TraZODone HCL 50 MG TABLET PO SCH (20:31)
[2020-12-28 08:28] LABS: APPEARANCE,URINE CLEAR (CLEAR); BILIRUBIN,URINE NEGATIVE (NEGATIVE); GLUCOSE, URINE (UA) NEGATIVE (NEGATIVE); KETONES,URINE NEGATIVE (NEGATIVE); LEUKOCYTE ESTERASE ,URINE NEGATIVE (NEGATIVE); NITRATE,URINE NEGATIVE (NEGATIVE); OCCULT BLOOD,URINE NEGATIVE (NEGATIVE); PH,URINE 6.5 (5.0-8.0); PROTEIN,URINE NEGATIVE (NEGATIVE); UROBILINOGEN,URINE 0.2 mg/dL (<=1.0)
[2020-12-28 08:31] LABS: AMPHET/METH SCREEN,URINE NEGATIVE (NEGATIVE); BARBITURATE SCREEN, URINE NEGATIVE (NEGATIVE); BENZODIAZEPINES SCREEN,URINE NEGATIVE (NEGATIVE); CANNABINOID SCREEN,URINE NEGATIVE (NEGATIVE); COCAINE SCREEN,URINE NEGATIVE (NEGATIVE); METHADONE SCREEN, URINE NEGATIVE (NEGATIVE); OPIATE SCREEN,URINE NEGATIVE (NEGATIVE)
[2020-12-28 08:34] LABS: PHENCYCLIDINE SCREEN,URINE NEGATIVE (NEGATIVE)
[2020-12-28 08:49] VITALS: BP 154/82
[2020-12-28] MEDS: AmLODIPine BESYLATE 5 MG TABLET PO SCH (09:11)
[2020-12-28] MEDS: OLANZapine 10 MG TABLET PO SCH ×2 (09:11→20:49)
[2020-12-28] MEDS: PARoxetine HCL 20 MG TABLET PO SCH (09:11)
[2020-12-28] MEDS: NICOTINE 14 MG/24 HOUR PATCH TD SCH (09:13)
[2020-12-28] MEDS: CARVEDILOL 6.25 MG TABLET PO SCH ×2 (09:21→16:37)
[2020-12-28 16:40] VITALS: BP 121/74
[2020-12-28] MEDS: TraZODone HCL 50 MG TABLET PO SCH (20:49)
[2020-12-29 05:34] VITALS: BP 123/76
[2020-12-29] MEDS: PARoxetine HCL 20 MG TABLET PO SCH (08:28)
[2020-12-29] MEDS: OLANZapine 10 MG TABLET PO SCH ×2 (08:28→20:33)
[2020-12-29] MEDS: CARVEDILOL 6.25 MG TABLET PO SCH ×2 (08:28→16:38)
[2020-12-29] MEDS: NICOTINE 14 MG/24 HOUR PATCH TD SCH (08:29)
[2020-12-29 08:37] VITALS: BP 120/67
[2020-12-29] MEDS: AmLODIPine BESYLATE 5 MG TABLET PO SCH (08:42)
[2020-12-29 17:02] VITALS: BP 111/68
[2020-12-29] MEDS: TraZODone HCL 50 MG TABLET PO SCH (20:33)
[2020-12-30 05:11] VITALS: BP 128/64
[2020-12-30 08:19] VITALS: BP 140/78
[2020-12-30] MEDS: CARVEDILOL 6.25 MG TABLET PO SCH ×2 (08:56→16:35)
[2020-12-30] MEDS: PARoxetine HCL 20 MG TABLET PO SCH (08:56)
[2020-12-30] MEDS: NICOTINE 14 MG/24 HOUR PATCH TD SCH (08:57)
[2020-12-30] MEDS: OLANZapine 10 MG TABLET PO SCH ×2 (08:58→20:42)
[2020-12-30] MEDS: AmLODIPine BESYLATE 5 MG TABLET PO SCH (08:58)
[2020-12-30 16:14] VITALS: BP 149/88
[2020-12-30] MEDS: TraZODone HCL 50 MG TABLET PO SCH (20:42)
[2020-12-31 00:10] VITALS: BP 152/87
[2020-12-31 08:44] VITALS: BP 140/76
[2020-12-31] MEDS: PARoxetine HCL 20 MG TABLET PO SCH (09:04)
[2020-12-31] MEDS: OLANZapine 10 MG TABLET PO SCH ×2 (09:04→20:34)
[2020-12-31] MEDS: AmLODIPine BESYLATE 5 MG TABLET PO SCH (09:04)
[2020-12-31] MEDS: NICOTINE 14 MG/24 HOUR PATCH TD SCH (09:05)
[2020-12-31] MEDS: CARVEDILOL 6.25 MG TABLET PO SCH ×2 (09:23→17:26)
[2020-12-31 16:24] VITALS: BP 102/61
[2020-12-31 17:26] VITALS: BP 123/66
[2020-12-31] MEDS: TraZODone HCL 50 MG TABLET PO SCH (20:34)
[2021-01-01 05:05] VITALS: BP 118/72
[2021-01-01 07:13] LABS: COVID AG,FIA SOURCE NASAL SWAB
[2021-01-01] MEDS: AmLODIPine BESYLATE 5 MG TABLET PO SCH (08:36)
[2021-01-01] MEDS: CARVEDILOL 6.25 MG TABLET PO SCH ×2 (08:36→16:29)
[2021-01-01] MEDS: PARoxetine HCL 20 MG TABLET PO SCH (08:37)
[2021-01-01] MEDS: NICOTINE 14 MG/24 HOUR PATCH TD SCH (08:37)
[2021-01-01] MEDS: OLANZapine 10 MG TABLET PO SCH ×2 (08:37→20:12)
[2021-01-01 08:41] VITALS: BP 132/80
[2021-01-01 16:31] VITALS: BP 145/78
[2021-01-01] MEDS: TraZODone HCL 50 MG TABLET PO SCH (20:12)
[2021-01-02 03:18] VITALS: BP 137/88
[2021-01-02 08:16] VITALS: BP 146/80
[2021-01-02] MEDS: NICOTINE 14 MG/24 HOUR PATCH TD SCH ×2 (09:00→09:35)
[2021-01-02] MEDS: OLANZapine 10 MG TABLET PO SCH (09:35)
[2021-01-02] MEDS: AmLODIPine BESYLATE 5 MG TABLET PO SCH (09:36)
[2021-01-02] MEDS: PARoxetine HCL 20 MG TABLET PO SCH (09:36)
[2021-01-02] MEDS: CARVEDILOL 6.25 MG TABLET PO SCH (09:36)
[2021-01-02] MEDS ORDERED: OLAN10TA20 PO (10:57)
[2021-01-02] MEDS ORDERED: PARO-37 PO (10:57)
[2021-01-02] MEDS ORDERED: TRAZ-252 PO (10:57)
[2021-01-02] MEDS ORDERED: CARV6 PO (12:10)
== END 2021-01-02 12:35 | disposition home or self-care (01) | DRG 885 ==
LOC: B2X 16:35
DX: F25.1 Schizoaffective disorder, depressive type (principal); R45.851 Suicidal ideations; I10 Essential (primary) hypertension; J44.9 Chronic obstructive pulmonary disease, unspecified; F17.200 Nicotine dependence, unspecified, uncomplicated; Z20.822 Contact with and (suspected) exposure to COVID-19; F10.10 Alcohol abuse, uncomplicated; F15.10 Other stimulant abuse, uncomplicated; Z79.899 Other long term (current) drug therapy; Z91.5 Personal history of self-harm; Z59.0 Homelessness
CPT/HCPCS: 80307; 83036; 84439; 84443; 87081; 87426

== ENCOUNTER 2021-12-13 13:48 | Inpatient (IN) | payer MEDICARE, OTHER ==
[~2021-12-13] VITALS: Ht 168.9 cm; Wt 83.3 kg
[~2021-12-13 13:48] MED LIST changes: +CARV6 PO; -HYDR25TA PO; +OLAN10 PO; -OLAN10TA3 PO; +PARO-37 PO; -PARO-38 PO; -POTA8CAP20 PO; -PROP10TA72 PO
[2021-12-13 14:59] LABS: HEMATOCRIT 45.3 % (41-53); HEMOGLOBIN 15.7 g/dL (13.5-17.5); LYMPHOCYTES # (AUTO) 1.2 K/uL (1.0-4.8); LYMPHOCYTES % (AUTO) 17.1 % (22.0-44.0); MEAN CORPUSCULAR HEMOGLOBIN 29.9 pg (26.0-34.0); MEAN CORPUSCULAR HGB CONC 34.6 G/dL (31.0-37.0); MEAN CORPUSCULAR VOLUME 87 fL (80-100); MONOCYTES # (AUTO) 0.4 K/uL (0.1-1.0); MONOCYTES % (AUTO) 5.5 % (2.0-9.0); NEUTROPHILS # (AUTO) 5.3 K/uL (1.8-7.7); NEUTROPHILS % (AUTO) 74.4 % (40.0-70.0); PLATELET COUNT (AUTO) 298 K/uL (150-450); RED BLOOD CELL COUNT(AUTO) 5.23 MIL/uL (4.50-5.90); RED CELL DISTRIBUTION WIDTH 14.9 % (11.5-14.5)
[2021-12-13 15:14] LABS: ANION GAP 6 mmol/L (8-16); CALCIUM, TOTAL 8.8 mg/dL (8.8-10.5); CARBON DIOXIDE 25 mmol/L (22-29); CHLORIDE 106 mmol/L (98-107); CREATININE 1.03 mg/dL (0.60-1.30); GLOMERULAR FILTR. RATE CALC > 60 mL/min (>60); GLUCOSE,RANDOM 103 mg/dL (70-110); SODIUM SERUM 137 mmol/L (136-145); UREA NITROGEN, BLOOD 17 mg/dL (7-18)
[2021-12-13 15:25] LABS: ALANINE AMINOTRANSFERASE 27 U/L (12-78); ALBUMIN 4.1 g/dL (3.4-5.0); ALKALINE PHOSPHATASE 81 U/L (46-116); ASPARTATE AMINOTRANSFERASE 15 U/L (15-37); BILIRUBIN,TOTAL 0.4 mg/dL (0.1-1.0); TOTAL PROTEIN, SERUM 7.5 g/dL (6.4-8.2)
[2021-12-13 15:35] LABS: ACETAMINOPHEN < 2 mcg/mL (10-30)
[2021-12-13 15:47] LABS: SALICYLATE 3.8 mg/dL (2.8-20.0)
[2021-12-13] MEDS ORDERED: SODIUM CHLORIDE 0.9% 1,000 ML IV ONE (17:00)
[2021-12-13] MEDS ORDERED: CALCIUM GLUCONATE 100 MG/ML 10 ML IVP ONE (17:00)
[2021-12-13 18:47] LABS: AMPHET/METH SCREEN,URINE NEGATIVE (NEGATIVE); BARBITURATE SCREEN, URINE NEGATIVE (NEGATIVE); BENZODIAZEPINES SCREEN,URINE NEGATIVE (NEGATIVE); CANNABINOID SCREEN,URINE POSITIVE (NEGATIVE); COCAINE SCREEN,URINE NEGATIVE (NEGATIVE); METHADONE SCREEN, URINE NEGATIVE (NEGATIVE); OPIATE SCREEN,URINE NEGATIVE (NEGATIVE); PHENCYCLIDINE SCREEN,URINE NEGATIVE (NEGATIVE)
[2021-12-13] MEDS ORDERED: ONDANSETRON HCL 4 MG/2 ML VIAL IVP PRN (21:30)
[2021-12-13] MEDS ORDERED: SODIUM CHLORIDE 0.9% 1,000 ML IV SCH (22:00)
[2021-12-13] MEDS: HEPARIN SODIUM,PORCINE 5,000 UNITS/ML VIAL SQ SCH (23:39)
[2021-12-14] MEDS ORDERED: ACETAMINOPHEN 500 MG TABLET PO ONE (04:45)
[2021-12-14] MEDS: HEPARIN SODIUM,PORCINE 5,000 UNITS/ML VIAL SQ SCH ×3 (07:11→23:22)
[2021-12-14 11:06] LABS: COVID AG,FIA SOURCE NASAL SWAB
[2021-12-14 11:59] VITALS: BP 109/57
[2021-12-14 15:54] VITALS: BP 115/65
[2021-12-14] MEDS ORDERED: INFLUENZA VIRUS VACCINE QVS 2021-22 (6MO+)/PF 60 MCG/0.5 ML SYRINGE IM. ONE (17:30)
[2021-12-14] MEDS ORDERED: PNEUMOCOCCAL VACCINE POLYVALENT 0.5 ML VIAL [PPSV23] IM. ONE (17:30)
[2021-12-14 19:32] VITALS: BP 137/69
[2021-12-14] MEDS: OLANZapine 10 MG TABLET PO SCH (21:17)
[2021-12-14 23:11] VITALS: BP 135/74
[2021-12-15 06:20] VITALS: BP 105/65
[2021-12-15 06:21] VITALS: BP_SYST 105; BP_SYST 107; BP_DIAS 64; BP_DIAS 65; BP_DIAS 66
[2021-12-15 07:24] VITALS: BP 100/64
[2021-12-15] MEDS: HEPARIN SODIUM,PORCINE 5,000 UNITS/ML VIAL SQ SCH ×3 (08:20→23:51)
[2021-12-15] MEDS: OLANZapine 10 MG TABLET PO SCH ×2 (08:20→20:26)
[2021-12-15 12:44] VITALS: BP 96/66
[2021-12-15 15:17] VITALS: BP 124/64
[2021-12-15 19:29] VITALS: BP 118/60
[2021-12-16 00:02] VITALS: BP 112/59
[2021-12-16 04:23] VITALS: BP 116/60
[2021-12-16 08:08] VITALS: BP 130/72
[2021-12-16] MEDS: OLANZapine 10 MG TABLET PO SCH ×2 (08:23→21:02)
[2021-12-16] MEDS: HEPARIN SODIUM,PORCINE 5,000 UNITS/ML VIAL SQ SCH ×3 (08:23→23:42)
[2021-12-16 12:04] VITALS: BP 121/74
[2021-12-16 16:05] VITALS: BP 118/80
[2021-12-16 21:57] VITALS: BP 119/73
[2021-12-17 00:12] VITALS: BP 107/69
[2021-12-17 04:46] VITALS: BP 108/68
[2021-12-17] MEDS: OLANZapine 10 MG TABLET PO SCH ×2 (08:00→20:55)
[2021-12-17] MEDS: HEPARIN SODIUM,PORCINE 5,000 UNITS/ML VIAL SQ SCH ×3 (08:01→23:00)
[2021-12-17 08:12] VITALS: BP 138/98
[2021-12-17 16:22] VITALS: BP 131/82
[2021-12-17 20:09] VITALS: BP 121/76
[2021-12-18 04:00] VITALS: BP 98/78
[2021-12-18 07:59] VITALS: BP 121/58
[2021-12-18] MEDS: HEPARIN SODIUM,PORCINE 5,000 UNITS/ML VIAL SQ SCH ×3 (08:57→23:31)
[2021-12-18] MEDS: OLANZapine 10 MG TABLET PO SCH ×2 (08:57→20:09)
[2021-12-18 16:05] VITALS: BP 136/85
[2021-12-18 19:46] VITALS: BP 131/81
[2021-12-18 23:14] VITALS: BP 125/66
[2021-12-25] MEDS ORDERED: OLAN10 PO (10:20)
== END 2021-12-19 00:09 | DRG 918 ==
LOC: EMS 13:57 → 5S 12-14 11:35 → 6N 12-16 17:40 → 6S 12-16 17:45
PROVIDERS: ADMIT Internal Medicine; ATTEND Internal Medicine
DX: T46.1X2A Poisoning by calcium-channel blockers, intentional self-harm, initial encounter (principal); R45.851 Suicidal ideations; F31.9 Bipolar disorder, unspecified; I10 Essential (primary) hypertension; F12.90 Cannabis use, unspecified, uncomplicated; Z20.822 Contact with and (suspected) exposure to COVID-19; I95.2 Hypotension due to drugs; M54.9 Dorsalgia, unspecified; F17.210 Nicotine dependence, cigarettes, uncomplicated; J44.9 Chronic obstructive pulmonary disease, unspecified; F25.9 Schizoaffective disorder, unspecified; Z79.899 Other long term (current) drug therapy; Z28.21 Immunization not carried out because of patient refusal; Y92.89 Other specified places as the place of occurrence of the external cause; Z71.6 Tobacco abuse counseling
CPT/HCPCS: 80053; 83735; 85025; 93005; 99291; G0480; G0481; J0610; J1644; J7030

== ENCOUNTER 2024-11-02 17:00 | Inpatient (IN) | payer OTHER, MEDICAID ==
[~2024-11-02 17:00] MED LIST changes: -AMLO-257 PO; -PARO-37 PO; -TRAZ-252 PO
[2024-11-02 17:30] VITALS: BP 158/108; PULSE 96; RESP 18; TEMP 98.4; O2SAT 96
[2024-11-02] MEDS ORDERED: DiphenhydrAMINE HCL 50 MG/ML VIAL ONE (18:03)
[2024-11-02] MEDS ORDERED: HALOPERIDOL LACTATE 5 MG/ML VIAL ONE (18:03)
[2024-11-02] MEDS ORDERED: LORazepam 2 MG/ML VIAL ONE (18:03)
[2024-11-02] MEDS ORDERED: LORazepam 2 MG/ML VIAL IM ONE (18:15)
[2024-11-02] MEDS ORDERED: HALOPERIDOL LACTATE 5 MG/ML VIAL IM ONE (18:15)
[2024-11-02] MEDS ORDERED: DiphenhydrAMINE HCL 50 MG/ML VIAL IM ONE (18:15)
[2024-11-03 01:09] VITALS: BP 148/71; PULSE 84; RESP 18; TEMP 97.8; O2SAT 96
[2024-11-03] MEDS ORDERED: ZOLPIDEM TARTRATE 10 MG TABLET PO PRN (03:00)
[2024-11-03] MEDS ORDERED: ALBUTEROL SULFATE HFA 90 MCG/PUFF 8 GM INHALER IH PRN (12:15)
[2024-11-03] MEDS: LORazepam 2 MG TABLET PO PRN (12:23)
[2024-11-03] MEDS: OLANZapine 5 MG RAPDIS TABLET PO PRN (12:23)
[2024-11-03 14:22] VITALS: BP 136/86; PULSE 83; RESP 17; TEMP 97.8; O2SAT 96
[2024-11-03] MEDS ORDERED: MAGNESIUM HYDROXIDE SUSPENSION 30 ML UDCUP PO PRN (14:30)
[2024-11-03] MEDS ORDERED: LOPERAMIDE HCL 2 MG CAPSULE PO PRN (14:30)
[2024-11-03] MEDS ORDERED: GuaiFENesin/D-METHORPHAN [SUGAR-FREE] 200-20MG/10 ML SYRUP UDCUP PO PRN ×2 (14:30→15:30)
[2024-11-03] MEDS ORDERED: TUBERCULIN, PURIFIED PROTEIN DERIVATIVE 5 TU/0.1 ML SYRINGE ID ONE (14:30)
[2024-11-03] MEDS ORDERED: ACETAMINOPHEN 325 MG TABLET PO PRN ×2 (14:30→15:30)
[2024-11-03] MEDS ORDERED: MAG HYDROX/ALUMINUM HYD/SIMETH ES 30 ML SUSPENSION UDCUP PO PRN (14:30)
[2024-11-03] MEDS ORDERED: PROMETHAZINE HCL 25 MG TABLET PO PRN (14:30)
[2024-11-03] MEDS ORDERED: HydrOXYzine PAMOATE 50 MG CAPSULE PO PRN (15:30)
[2024-11-03] MEDS: THIAMINE 100 MG TABLET PO SCH (16:11)
[2024-11-03 16:17] VITALS: BP 136/86; PULSE 83; RESP 17; TEMP 97.8
[2024-11-03] MEDS ORDERED: THIAMINE 100 MG TABLET PO SCH (17:00)
[2024-11-03 20:00] VITALS: BP 156/85; PULSE 91; RESP 16; TEMP 97; O2SAT 97
[2024-11-03] MEDS: DIVALPROEX SODIUM 500 MG ER TABLET PO SCH (20:59)
[2024-11-03] MEDS: MELATONIN 5 MG TABLET PO SCH (21:00)
[2024-11-03] MEDS: OLANZapine 5 MG RAPDIS TABLET PO SCH (21:00)
[2024-11-03 22:23] VITALS: BP 156/85; PULSE 91; RESP 16; TEMP 97
[2024-11-04] MEDS: NALTREXONE HCL 50 MG TABLET PO SCH (08:23)
[2024-11-04] MEDS: CHLORTHALIDONE 25 MG TABLET PO SCH (08:23)
[2024-11-04] MEDS: AmLODIPine BESYLATE 5 MG TABLET PO SCH (08:23)
[2024-11-04] MEDS: MULTIVITAMINS WITH MINERALS, THERAPEUTIC TABLET PO SCH (08:23)
[2024-11-04] MEDS: LOSARTAN POTASSIUM 50 MG TABLET PO SCH (08:23)
[2024-11-04 08:27] VITALS: BP 155/86; PULSE 80; RESP 17; TEMP 97.3; O2SAT 96
[2024-11-04] MEDS: PALIPERIDONE PALMITATE 234 MG/1.5 ML SYRINGE IM ONE (08:46)
[2024-11-04] MEDS ORDERED: MULTIVITAMINS WITH MINERALS, THERAPEUTIC TABLET PO SCH (09:00)
[2024-11-04] MEDS ORDERED: FOLIC ACID 1 MG TABLET PO SCH (09:00)
[2024-11-04] MEDS: FOLIC ACID 1 MG TABLET PO SCH (09:18)
[2024-11-04 20:00] VITALS: BP 158/89; PULSE 77; RESP 16; TEMP 97.3; O2SAT 96
[2024-11-05 10:21] LABS: BASOPHILS % (AUTO) 1.1 % (0.0-2.0); EOSINOPHILS % (AUTO) 4.1 % (1.0-6.0); HEMOGLOBIN 15.8 g/dL (13.5-17.5); LYMPHOCYTES # (AUTO) 1.6 K/uL (1.0-4.8); LYMPHOCYTES % (AUTO) 17.7 % (22.0-44.0); MEAN CORPUSCULAR HEMOGLOBIN 31.6 pg (26.0-34.0); MEAN CORPUSCULAR HGB CONC 34.3 G/dL (31.0-37.0); MEAN CORPUSCULAR VOLUME 92 fL (80-100); MONOCYTES # (AUTO) 0.5 K/uL (0.1-1.0); MONOCYTES % (AUTO) 5.5 % (2.0-9.0); NEUTROPHILS # (AUTO) 6.4 K/uL (1.8-7.7); NEUTROPHILS % (AUTO) 71.6 % (40.0-70.0); PLATELET COUNT (AUTO) 288 K/uL (150-450); RED BLOOD CELL COUNT(AUTO) 4.98 MIL/uL (4.50-5.90); RED CELL DISTRIBUTION WIDTH 15.2 % (11.5-14.5); WHITE BLOOD COUNT (AUTO) 8.9 K/uL (4.5-11.0)
[2024-11-05 10:32] LABS: HEMOGLOBIN A1C 5.5 % (3.8-5.6)
[2024-11-05 10:50] LABS: ALANINE AMINOTRANSFERASE 42 U/L (12-78); ALBUMIN 3.6 g/dL (3.4-5.0); ALKALINE PHOSPHATASE 68 U/L (46-116); ANION GAP 9 mmol/L (8-16); ASPARTATE AMINOTRANSFERASE 23 U/L (15-37); BILIRUBIN,TOTAL 0.6 mg/dL (0.1-1.0); CALCIUM, TOTAL 8.5 mg/dL (8.8-10.5); CARBON DIOXIDE 26 mmol/L (22-29); CHLORIDE 105 mmol/L (98-107); CHOL/HDL RATIO 2.9 (4.2-7.3); CHOLESTEROL 118 mg/dL (131-200); CREATININE 1.07 mg/dL (0.60-1.30); FREE T4 (FREE THYROXINE) 1.04 ng/dL (0.76-1.46); GLOMERULAR FILTR. RATE CALC > 60 mL/min (>60); GLUCOSE,RANDOM 126 mg/dL (70-110); HDL CHOLESTEROL 41 mg/dL (40-60); LDL CHOL (CALC.) 56 mg/dL (0-130); POTASSIUM 3.5 mmol/L (3.5-5.1); SODIUM SERUM 140 mmol/L (136-145); THYROID STIMULATING HORMONE 1.52 uIU/mL (0.36-3.74); TOTAL PROTEIN, SERUM 6.8 g/dL (6.4-8.2); TRIGLYCERIDES 106 mg/dL (15-150); UREA NITROGEN, BLOOD 18 mg/dL (7-18)
[2024-11-05 13:24] VITALS: BP 145/81; PULSE 90; RESP 15; TEMP 98.1; O2SAT 96
[2024-11-05 13:34] VITALS: BP 145/81; PULSE 90; RESP 15; TEMP 98.1; O2SAT 96
[2024-11-05] MEDS: LORazepam 2 MG/ML VIAL IM ONE (17:15)
[2024-11-05] MEDS: HALOPERIDOL LACTATE 5 MG/ML VIAL IM ONE (17:15)
[2024-11-05] MEDS: DiphenhydrAMINE HCL 50 MG/ML VIAL IM ONE (17:15)
[2024-11-05 21:01] VITALS: BP 115/77; PULSE 80; RESP 17; TEMP 97.4; O2SAT 95
[2024-11-06 09:31] VITALS: BP 129/84; PULSE 88; RESP 16; TEMP 97.6
[2024-11-06] MEDS: HydrOXYzine PAMOATE 50 MG CAPSULE PO PRN (16:26)
[2024-11-06 20:51] VITALS: RESP 17
[2024-11-07 08:08] VITALS: BP 138/68; PULSE 78; RESP 17; TEMP 97.3; O2SAT 96
[2024-11-07] MEDS: PALIPERIDONE PALMITATE 156 MG/ML SYRINGE IM ONE (16:09)
[2024-11-07 20:00] VITALS: BP_SYST 115; BP_SYST 121; BP_DIAS 69; BP_DIAS 73; PULSE 66; PULSE 87; RESP 16; TEMP 97.2; TEMP 97.4; O2SAT 95; O2SAT 97
[2024-11-08 08:00] VITALS: BP 122/74; PULSE 81; RESP 16; TEMP 97.3; O2SAT 96
[2024-11-08 21:04] VITALS: BP 120/76; PULSE 84; RESP 16; TEMP 97.2; O2SAT 97
[2024-11-09 08:40] VITALS: BP 131/78; PULSE 61; RESP 16; TEMP 97; O2SAT 95
[2024-11-09] MEDS ORDERED: NALT50TA33 PO (15:02)
[2024-11-09] MEDS ORDERED: OLAN5TAB94 PO (15:02)
[2024-11-09] MEDS ORDERED: MELA5TAB40 PO (15:02)
[2024-11-09] MEDS ORDERED: DIVA-153 PO (15:02)
== END 2024-11-09 18:45 | disposition home or self-care (01) | DRG 885 ==
LOC: B3A 22:45
PROVIDERS: ADMIT Psychiatry & Neurology Psychiatry; ATTEND Psychiatry & Neurology Psychiatry
PROC: GZHZZZZ Group Psychotherapy (ICD-10-PCS; principal; 2024-11-03)
PROC: GZ58ZZZ Individual Psychotherapy, Cognitive-Behavioral (ICD-10-PCS; 2024-11-03)
DX: F25.0 Schizoaffective disorder, bipolar type (principal); R45.851 Suicidal ideations; Z59.00 Homelessness unspecified; F17.200 Nicotine dependence, unspecified, uncomplicated; G47.00 Insomnia, unspecified; J43.9 Emphysema, unspecified; Z91.199 Patient's noncompliance with other medical treatment and regimen due to unspecified reason; Z55.9 Problems related to education and literacy, unspecified; Z59.9 Problem related to housing and economic circumstances, unspecified; Z63.9 Problem related to primary support group, unspecified; Z65.3 Problems related to other legal circumstances
CPT/HCPCS: 80053; 80061; 83036; 84439; 84443; 85025; 86592; J1200; J1630; J2060

== ENCOUNTER 2024-11-02 19:28 | Emergency (ER) | payer OTHER ==
[~2024-11-02] VITALS: Ht 172.7 cm; Wt 79.5 kg
[2024-11-02 19:29] VITALS: TEMP 98.7
[2024-11-02 20:15] VITALS: BP 124/78; PULSE 69; RESP 17; O2SAT 96
[2024-11-02 20:30] LABS: POTASSIUM 3.7 mmol/L (3.5-5.1)
[2024-11-02 20:31] LABS: CALCIUM, TOTAL 8.3 mg/dL (8.8-10.5); CREATININE 1.38 mg/dL (0.60-1.30)
[2024-11-02 20:33] LABS: BASOPHILS % (AUTO) 0.1 % (0.0-2.0); EOSINOPHILS % (AUTO) 3.6 % (1.0-6.0); HEMATOCRIT 43.2 % (41-53); HEMOGLOBIN 14.5 g/dL (13.5-17.5); LYMPHOCYTES # (AUTO) 1.5 K/uL (1.0-4.8); LYMPHOCYTES % (AUTO) 19.7 % (22.0-44.0); MEAN CORPUSCULAR HEMOGLOBIN 30.7 pg (26.0-34.0); MEAN CORPUSCULAR HGB CONC 33.5 G/dL (31.0-37.0); MEAN CORPUSCULAR VOLUME 92 fL (80-100); MONOCYTES # (AUTO) 0.5 K/uL (0.1-1.0); MONOCYTES % (AUTO) 6.6 % (2.0-9.0); NEUTROPHILS # (AUTO) 5.2 K/uL (1.8-7.7); PLATELET COUNT (AUTO) 257 K/uL (150-450); RED BLOOD CELL COUNT(AUTO) 4.72 MIL/uL (4.50-5.90); RED CELL DISTRIBUTION WIDTH 14.9 % (11.5-14.5); WHITE BLOOD COUNT (AUTO) 7.4 K/uL (4.5-11.0)
[2024-11-02 20:37] LABS: COVID AG,FIA SOURCE NASAL SWAB
[2024-11-02 20:40] LABS: APPEARANCE,URINE CLEAR (CLEAR); BILIRUBIN,URINE NEGATIVE (NEGATIVE); COLOR,URINE YELLOW (YELLOW); GLUCOSE, URINE (UA) NEGATIVE (NEGATIVE); LEUKOCYTE ESTERASE ,URINE NEGATIVE (NEGATIVE); NITRATE,URINE NEGATIVE (NEGATIVE); OCCULT BLOOD,URINE NEGATIVE (NEGATIVE); PH,URINE 5.5 (5.0-8.0); PH,URINE DRUG SCREEN 5.5 (5.0-8.0); PROTEIN,URINE 30-70 mg/dL (NEGATIVE); SPECIFIC GRAVITIY, URINE 1.031 (1.003-1.030)
[2024-11-02 20:44] LABS: RBC,URINE 0-2 /HPF (0-2)
[2024-11-02 20:45] LABS: BACTERIA,URINE Few /HPF (None Seen); SQUAMOUS EPITHELIAL CELL,UR Few /LPF (None Seen); WBC,URINE 0-2 /HPF (0-5)
[2024-11-02 20:48] LABS: ALCOHOL, URINE DRUG SCREEN NEGATIVE (NEGATIVE); AMPHET/METH SCREEN,URINE NEGATIVE (NEGATIVE); BARBITURATE SCREEN, URINE NEGATIVE (NEGATIVE); BENZODIAZEPINES SCREEN,URINE NEGATIVE (NEGATIVE); CANNABINOID SCREEN,URINE POSITIVE (NEGATIVE); COCAINE SCREEN,URINE NEGATIVE (NEGATIVE); METHADONE SCREEN, URINE NEGATIVE (NEGATIVE); OPIATE SCREEN,URINE NEGATIVE (NEGATIVE); PHENCYCLIDINE SCREEN,URINE NEGATIVE (NEGATIVE)
[2024-11-02 20:57] LABS: SARS-COV2 (COVID) ANTIGEN,FIA Negative (Negative)
== END 2024-11-02 22:18 | disposition home or self-care (01) ==
LOC: EMS 19:28
DX: I10 Essential (primary) hypertension (principal); F25.0 Schizoaffective disorder, bipolar type; F12.90 Cannabis use, unspecified, uncomplicated; F17.210 Nicotine dependence, cigarettes, uncomplicated; F10.90 Alcohol use, unspecified, uncomplicated; J44.9 Chronic obstructive pulmonary disease, unspecified; E46 Unspecified protein-calorie malnutrition; R44.0 Auditory hallucinations; Z20.822 Contact with and (suspected) exposure to COVID-19
CPT/HCPCS: 80048; 80307; 81001; 85025; 99285

== ENCOUNTER 2024-11-20 11:50 | Emergency (ER) | payer OTHER ==
[~2024-11-20] VITALS: Ht 175.3 cm; Wt 79.5 kg
[~2024-11-20 11:50] MED LIST changes: -CARV6 PO; +DIVA-153 PO; +MELA5TAB40 PO; +NALT50TA33 PO; -OLAN10 PO; +OLAN5TAB94 PO
[2024-11-20 11:55] VITALS: BP 166/92; PULSE 92; RESP 19; TEMP 98.5; O2SAT 100
[2024-11-20] MEDS ORDERED: NALT50TA6 PO (11:59)
[2024-11-20] MEDS ORDERED: OLAN15TA21 PO (11:59)
[2024-11-20] MEDS ORDERED: ASEN10TA11 SL (11:59)
[2024-11-20 13:28] LABS: EOSINOPHILS % (AUTO) 2.1 % (1.0-6.0); HEMATOCRIT 45.8 % (41-53); HEMOGLOBIN 15.5 g/dL (13.5-17.5); LYMPHOCYTES # (AUTO) 0.8 K/uL (1.0-4.8); LYMPHOCYTES % (AUTO) 10.7 % (22.0-44.0); MEAN CORPUSCULAR HEMOGLOBIN 31.5 pg (26.0-34.0); MEAN CORPUSCULAR HGB CONC 33.7 G/dL (31.0-37.0); MEAN CORPUSCULAR VOLUME 93 fL (80-100); MONOCYTES # (AUTO) 0.4 K/uL (0.1-1.0); NEUTROPHILS # (AUTO) 5.8 K/uL (1.8-7.7); NEUTROPHILS % (AUTO) 80.2 % (40.0-70.0); PLATELET COUNT (AUTO) 306 K/uL (150-450); RED BLOOD CELL COUNT(AUTO) 4.91 MIL/uL (4.50-5.90); RED CELL DISTRIBUTION WIDTH 15.2 % (11.5-14.5); WHITE BLOOD COUNT (AUTO) 7.3 K/uL (4.5-11.0)
[2024-11-20 13:36] LABS: ANION GAP 8 mmol/L (8-16); CALCIUM, TOTAL 8.7 mg/dL (8.8-10.5); CARBON DIOXIDE 28 mmol/L (22-29); CHLORIDE 103 mmol/L (98-107); CREATININE 1.27 mg/dL (0.60-1.30); GLOMERULAR FILTR. RATE CALC 58 mL/min (>60); GLUCOSE,RANDOM 155 mg/dL (70-110); POTASSIUM 3.7 mmol/L (3.5-5.1); SODIUM SERUM 139 mmol/L (136-145); UREA NITROGEN, BLOOD 10 mg/dL (7-18)
[2024-11-20 13:56] LABS: ALCOHOL, BLOOD (SERUM) < 3 mg/dL (0-10)
[2024-11-20] MEDS: LORazepam 2 MG TABLET PO ONE (14:39)
[2024-11-20 16:12] LABS: COVID AG,FIA SOURCE NASAL SWAB
[2024-11-20 16:40] LABS: SARS-COV2 (COVID) ANTIGEN,FIA Negative (Negative)
== END 2024-11-20 17:34 | disposition home or self-care (01) ==
LOC: EMS 11:57
DX: F25.0 Schizoaffective disorder, bipolar type (principal); F41.9 Anxiety disorder, unspecified; F12.90 Cannabis use, unspecified, uncomplicated; F17.210 Nicotine dependence, cigarettes, uncomplicated; J44.9 Chronic obstructive pulmonary disease, unspecified; Z79.899 Other long term (current) drug therapy; Z20.822 Contact with and (suspected) exposure to COVID-19
CPT/HCPCS: 99284; 87426; 80048; 85025; 36415; G0480

== ENCOUNTER 2024-11-21 13:05 | Inpatient (IN) | payer OTHER, MEDICAID ==
[~2024-11-21] VITALS: Ht 167.6 cm; Wt 81.7 kg
[~2024-11-21 13:05] MED LIST changes: +ASEN10TA11 SL; -MELA5TAB40 PO; -NALT50TA33 PO; +NALT50TA6 PO; +OLAN15TA21 PO; -OLAN5TAB94 PO
[2024-11-21] MEDS: LORazepam 1 MG TABLET PO ONE (14:43)
[2024-11-21] MEDS: OLANZapine 10 MG TABLET PO ONE (15:19)
[2024-11-21 16:08] LABS: COVID AG,FIA SOURCE NASAL SWAB
[2024-11-21 16:11] LABS: BASOPHILS % (AUTO) 0.4 % (0.0-2.0); EOSINOPHILS % (AUTO) 0.3 % (1.0-6.0); HEMATOCRIT 43.6 % (41-53); HEMOGLOBIN 14.8 g/dL (13.5-17.5); LYMPHOCYTES % (AUTO) 6.7 % (22.0-44.0); MEAN CORPUSCULAR VOLUME 91 fL (80-100); MONOCYTES # (AUTO) 0.7 K/uL (0.1-1.0); MONOCYTES % (AUTO) 4.9 % (2.0-9.0); PLATELET COUNT (AUTO) 297 K/uL (150-450); RED BLOOD CELL COUNT(AUTO) 4.77 MIL/uL (4.50-5.90); RED CELL DISTRIBUTION WIDTH 14.8 % (11.5-14.5); WHITE BLOOD COUNT (AUTO) 14.9 K/uL (4.5-11.0)
[2024-11-21 16:18] LABS: NEUTROPHILS % (AUTO) 87.7 % (40.0-70.0)
[2024-11-21 16:28] LABS: ANION GAP 12 mmol/L (8-16); CALCIUM, TOTAL 8.8 mg/dL (8.8-10.5); CARBON DIOXIDE 25 mmol/L (22-29); CHLORIDE 101 mmol/L (98-107); CREATININE 1.42 mg/dL (0.60-1.30); GLOMERULAR FILTR. RATE CALC 51 mL/min (>60); GLUCOSE,RANDOM 152 mg/dL (70-110); SODIUM SERUM 138 mmol/L (136-145); UREA NITROGEN, BLOOD 9 mg/dL (7-18)
[2024-11-21 17:04] LABS: SARS-COV2 (COVID) ANTIGEN,FIA Negative (Negative)
[2024-11-21 17:07] LABS: RBC MORPHOLOGY COMMENT NORMAL RBC MORPH
[2024-11-21 17:25] LABS: ALCOHOL, BLOOD (SERUM) < 3 mg/dL (0-10)
[2024-11-21] MEDS: POTASSIUM CHLORIDE 20 MEQ ER TABLET PO ONE ×2 (18:24→20:15)
[2024-11-21 18:25] LABS: AMPHET/METH SCREEN,URINE NEGATIVE (NEGATIVE); BARBITURATE SCREEN, URINE NEGATIVE (NEGATIVE); BENZODIAZEPINES SCREEN,URINE NEGATIVE (NEGATIVE); CANNABINOID SCREEN,URINE NEGATIVE (NEGATIVE); COCAINE SCREEN,URINE NEGATIVE (NEGATIVE); METHADONE SCREEN, URINE NEGATIVE (NEGATIVE); OPIATE SCREEN,URINE NEGATIVE (NEGATIVE); PHENCYCLIDINE SCREEN,URINE NEGATIVE (NEGATIVE)
[2024-11-21 18:31] LABS: ALCOHOL, URINE DRUG SCREEN NEGATIVE (NEGATIVE)
[2024-11-21 18:37] LABS: APPEARANCE,URINE CLEAR (CLEAR); BILIRUBIN,URINE NEGATIVE (NEGATIVE); COLOR,URINE COLORLESS (YELLOW); GLUCOSE, URINE (UA) NEGATIVE (NEGATIVE); KETONES,URINE NEGATIVE (NEGATIVE); LEUKOCYTE ESTERASE ,URINE NEGATIVE (NEGATIVE); NITRATE,URINE NEGATIVE (NEGATIVE); OCCULT BLOOD,URINE NEGATIVE (NEGATIVE); PH,URINE 6.5 (5.0-8.0); PH,URINE DRUG SCREEN 6.5 (5.0-8.0); PROTEIN,URINE NEGATIVE (NEGATIVE); SPECIFIC GRAVITIY, URINE 1.005 (1.003-1.030); UROBILINOGEN,URINE <=1.0 mg/dL (<=1.0)
[2024-11-21 19:45] LABS: CREATININE 1.42 mg/dL (0.60-1.30)
[2024-11-21 19:48] LABS: POTASSIUM 2.9 mmol/L (3.5-5.1)
[2024-11-21] MEDS: RINGERS SOLUTION,LACTATED 1,000 ML IV ONE (20:15)
[2024-11-21 21:56] LABS: CALCIUM, TOTAL 8.8 mg/dL (8.8-10.5); CREATININE 1.38 mg/dL (0.60-1.30); POTASSIUM 3.4 mmol/L (3.5-5.1)
[2024-11-21] MEDS ORDERED: LOPERAMIDE HCL 2 MG CAPSULE PO PRN (22:15)
[2024-11-21] MEDS ORDERED: MAGNESIUM HYDROXIDE SUSPENSION 30 ML UDCUP PO PRN (22:15)
[2024-11-21] MEDS ORDERED: ACETAMINOPHEN 325 MG TABLET PO PRN (22:15)
[2024-11-21] MEDS ORDERED: MAG HYDROX/ALUMINUM HYD/SIMETH ES 30 ML SUSPENSION UDCUP PO PRN (22:15)
[2024-11-21] MEDS: ZOLPIDEM TARTRATE 10 MG TABLET PO PRN (22:41)
[2024-11-21] MEDS: LORazepam 2 MG TABLET PO PRN (22:41)
[2024-11-22 01:20] VITALS: O2SAT 95
[2024-11-22 04:09] VITALS: BP 123/67; PULSE 96; RESP 18; TEMP 97.8
[2024-11-22] MEDS ORDERED: INFLUENZA VIRUS VACCINE TVS (6MO+) 2024-25/PF 45 MCG/0.5 ML SYRINGE IM. ONE (04:45)
[2024-11-22] MEDS ORDERED: PNEUMOCOCCAL VACCINE POLYVALENT 0.5 ML SYRINGE [PPSV23] IM. ONE (04:45)
[2024-11-22 08:41] VITALS: BP 107/69; PULSE 85; RESP 18; TEMP 97.8; O2SAT 95
[2024-11-22] MEDS: POTASSIUM CHLORIDE 20 MEQ ER TABLET PO ONE ×2 (11:20→19:01)
[2024-11-22] MEDS: HALOPERIDOL 5 MG TABLET PO PRN (12:21)
[2024-11-22 20:06] VITALS: BP 120/67; PULSE 70; RESP 17; TEMP 98; O2SAT 95
[2024-11-23 08:41] VITALS: BP 140/76; PULSE 80; RESP 15; TEMP 97.8; O2SAT 95
[2024-11-23] MEDS ORDERED: HydrOXYzine PAMOATE 50 MG CAPSULE PO PRN (11:45)
[2024-11-23] MEDS ORDERED: GuaiFENesin/D-METHORPHAN [SUGAR-FREE] 200-20MG/10 ML SYRUP UDCUP PO PRN (11:45)
[2024-11-23] MEDS: CYANOCOBALAMIN 1,000 MCG/ML VIAL IM ONE (13:49)
[2024-11-23] MEDS: DIVALPROEX SODIUM 500 MG ER TABLET PO SCH (13:49)
[2024-11-23] MEDS ORDERED: PALIPERIDONE PALMITATE 234 MG/1.5 ML SYRINGE IM ONE (16:00)
[2024-11-23] MEDS: THIAMINE 100 MG TABLET PO SCH (16:26)
[2024-11-23] MEDS: MELATONIN 5 MG TABLET PO SCH (20:48)
[2024-11-23] MEDS: OLANZapine 5 MG RAPDIS TABLET PO SCH (20:49)
[2024-11-23 20:52] VITALS: BP 127/85; PULSE 89; RESP 17; TEMP 97.5; O2SAT 96
[2024-11-24] MEDS: NALTREXONE HCL 50 MG TABLET PO SCH (08:39)
[2024-11-24] MEDS: FOLIC ACID 1 MG TABLET PO SCH (08:39)
[2024-11-24] MEDS: BuPROPion HCL XL 150 MG ER TABLET PO SCH (08:39)
[2024-11-24] MEDS: MULTIVITAMINS WITH MINERALS, THERAPEUTIC TABLET PO SCH (08:41)
[2024-11-24 08:59] VITALS: BP 110/77; PULSE 82; RESP 16; TEMP 97.7; O2SAT 97
[2024-11-24 10:14] LABS: BASOPHILS % (AUTO) 2.2 % (0.0-2.0); EOSINOPHILS % (AUTO) 7.2 % (1.0-6.0); HEMATOCRIT 44.8 % (41-53); HEMOGLOBIN 15.6 g/dL (13.5-17.5); LYMPHOCYTES # (AUTO) 1.7 K/uL (1.0-4.8); LYMPHOCYTES % (AUTO) 19.9 % (22.0-44.0); MEAN CORPUSCULAR HEMOGLOBIN 31.8 pg (26.0-34.0); MEAN CORPUSCULAR HGB CONC 34.7 G/dL (31.0-37.0); MEAN CORPUSCULAR VOLUME 91 fL (80-100); MONOCYTES # (AUTO) 0.7 K/uL (0.1-1.0); MONOCYTES % (AUTO) 8.3 % (2.0-9.0); NEUTROPHILS # (AUTO) 5.2 K/uL (1.8-7.7); NEUTROPHILS % (AUTO) 62.4 % (40.0-70.0); PLATELET COUNT (AUTO) 312 K/uL (150-450); RED CELL DISTRIBUTION WIDTH 15.3 % (11.5-14.5); WHITE BLOOD COUNT (AUTO) 8.3 K/uL (4.5-11.0)
[2024-11-24] MEDS: OLANZapine 10 MG RAPDIS TABLET PO SCH (20:28)
[2024-11-24 23:10] VITALS: BP 114/62; PULSE 72; RESP 18; TEMP 97; O2SAT 96
[2024-11-25 10:14] VITALS: BP 117/72; PULSE 73; RESP 18; TEMP 97.1; O2SAT 96
[2024-11-25 20:37] VITALS: RESP 16
[2024-11-26] MEDS: BuPROPion HCL XL 150 MG ER TABLET PO SCH (08:13)
[2024-11-26] MEDS: OLANZapine 5 MG RAPDIS TABLET PO PRN (08:13)
[2024-11-26 20:00] VITALS: RESP 16
[2024-11-27] MEDS: BuPROPion HCL XL 150 MG ER TABLET PO SCH (08:01)
[2024-11-27] MEDS ORDERED: PALIPERIDONE PALMITATE 156 MG/ML SYRINGE IM ONE (09:00)
[2024-11-27 09:58] VITALS: BP 107/74; PULSE 81; RESP 17; TEMP 97.7; O2SAT 96
[2024-11-27 21:29] VITALS: BP 115/76; PULSE 68; RESP 16; TEMP 97.6; O2SAT 96
[2024-11-28 08:13] VITALS: BP 115/78; PULSE 80; RESP 15; TEMP 98; O2SAT 95
[2024-11-28] MEDS: LORazepam 0.5 MG TABLET PO PRN (09:33)
[2024-11-28 21:02] VITALS: BP 111/64; PULSE 80; RESP 17; TEMP 97.5; O2SAT 98
[2024-11-29 10:14] VITALS: BP 120/72; PULSE 80; RESP 16; TEMP 97.8; O2SAT 97
[2024-11-29 20:50] VITALS: BP 111/67; PULSE 76; RESP 16; TEMP 97.7; O2SAT 96
[2024-11-30 09:21] VITALS: BP 137/81; PULSE 77; RESP 18; TEMP 97.6; O2SAT 98
[2024-11-30] MEDS ORDERED: MELA5TAB40 PO (12:11)
[2024-11-30] MEDS ORDERED: NALT50TA33 PO (12:11)
[2024-11-30] MEDS ORDERED: DIVA-153 PO (12:11)
[2024-11-30] MEDS ORDERED: BUPR-514 PO (12:11)
[2024-11-30] MEDS ORDERED: OLAN10TA26 PO (12:11)
== END 2024-11-30 18:19 | disposition home or self-care (01) | DRG 885 ==
LOC: EMS 13:07 → B3A 11-22 03:29
PROVIDERS: ADMIT Psychiatry & Neurology Psychiatry; ATTEND Psychiatry & Neurology Psychiatry
PROC: GZHZZZZ Group Psychotherapy (ICD-10-PCS; principal; 2024-11-23)
DX: F25.0 Schizoaffective disorder, bipolar type (principal); N17.9 Acute kidney failure, unspecified; I31.9 Disease of pericardium, unspecified; R45.851 Suicidal ideations; Z59.00 Homelessness unspecified; Z20.822 Contact with and (suspected) exposure to COVID-19; J44.9 Chronic obstructive pulmonary disease, unspecified; F17.200 Nicotine dependence, unspecified, uncomplicated; F41.0 Panic disorder [episodic paroxysmal anxiety]; Z60.8 Other problems related to social environment; Z91.148 Patient's other noncompliance with medication regimen for other reason
CPT/HCPCS: 71045; 80048; 80164; 80307; 81003; 84132; 85025; 87081; 99285; G0480; J3420; J7120; 36415-L1; 36415-TC